=== PATIENT | female | born 1960 | race Two or more races ===

== ENCOUNTER 2017-05-07 08:56 | Emergency (ER) | payer OTHER ==
--- OUTSIDE RECORDS SUMMARY | 2017-05-07 09:10 | XMS REPORT ---
:1960 External Reference #:[id number] Author Organization [facility] Address [address] [address] Phone [phone] Care Team Providers Name Role Phone Nisha Dominguez MD Primary Care Physician Unavailable Payers Type Date Identification Numbers Payment Provider Subscriber Commercial Policy Number: [id number] Total Care/Pack [facility] [employer] Name: [id number] [address] [address] PayID: [id number] [place] [address] Medigap Part B Expires: 2014 Policy Number: [id number] Medicaid [employer] Name: 1 1 [address] PayID: [id number] [place] [address] Problems Date Description Provider Status Onset: 01/26/2015 Immunologic Shiraz Diallo M.D. Active Onset: 01/26/2015 Chronic pain Shiraz Diallo M.D. Active Family History Date Family Member(s) Problem(s) Comments General Diabetes Mother Diabetes Social History Type Date Description Comments Lives With Son Occupation Unemployed Cigarette Use Patient is a current cigarette smoker, smokes every day Cigarette Use currently smokes 1/2 Pack Daily ETOH Use Denies alcohol use Smoking Patient is a current smoker, smokes 1-3 cigs per daily every day Recreational Drug Use Denies Drug Use Daily Caffeine Consumes on average 1 cup of regular coffee per day Exercise Type/Frequency Does not exercise Allergies, Adverse Reactions, Alerts Date Description Reaction Status Severity Comments 10/19/2014 NKDA active Medications Medication Date Status Form Strength Qnty SIG Indications Ordering Provider Vitamin D 03/05 Active Capsules [id number] 14cap Take 1 (Ergocalciferol s Capsule By Tyra, ) Mouth Once M.D. Weekly Enbrel 12/12 Active Solution 50mg/ml 4unit inject M06.4 Zsofia Sureclick Auto-Inject s subcutaneous El, ly 50mg [employer] every week pen Aspercreme Max 10/07 Active Liquid 16% 1unit apply daily M06.09 Giovany Roll-On s as needed Delta Mary M.D. Strength Plaquenil 05/01 Active Tablets 200mg 180ta Take 2 by F17.210 bs mouth daily nelda Mary M.D. Cardizem 03/12 Active Tablets 30mg 180ta 1 by mouth R00.2 Qutayb bs twice a day Boris Rogers M.D. Methotrexate 01/30 Active Tablets 2.5mg 64tab take 8 M06.4 s capsules/tab Tyra, lets once M.D. weekly by mouth on wednesdays (in [place]) Folic Acid 01/30 Active Tablets 1mg 90tab take one M06.4 s capsule/tabl Tyra, et daily by M.D. mouth qd Ibuprofen Active Tablets 600mg 1 by mouth Unknown three times a day as needed Advair HFA Active Aerosol 115-21mcg 2 puff twice Unknown /0000 /Act a day Proair HFA Active Aerosol 108(90Bas 2 puffs by Unknown /0000 e) mouth every mcg/Act 6 hours as needed Fluticasone Active Suspension 50mcg/Act 2 sprays Unknown each nostril daily as needed Voltaren Active Gel 1% apply to Unknown /0000 affected area twice a day, as needed Diclofenac 00 Active Gel 3% topical prn Sailaja-H Sodium /0000 Dacia woodward PA Estradiol 00 Active 1mg 1 po daily ( Unknown 0000 Pt has one dose left - inst to f/u with MD to prescribe Enbrel 06/05 Hx Soln 50mg/ml 11.76 50mg sq M06.4 Prefill ml every week, Tyra, - Syringe 3 month M.D. 12/12 Prednisone 05/01 Hx Tablets 5mg 120ta please take M06.4 bs 2 tabs daily Tyra, - M.D. 04/29 [id number] 02/22 Hx Chewtabs 1mg 90uni take one ts capsule/tabl Tyra, - et daily M.D. 04/28 sublingually (in Sudanese) Cyanocobalamin 02/21 Hx Solution 1000mcg/M 75ml sq once L monthly; Tyra, - please M.D. 02/22 appropriate needle and syringes for injection Prednisone 02/21 Hx Tablets 20mg 90tab 1 po qd M06.4 s Tyra, - M.D. 05/01 Ergocalciferol 02/07 Hx Capsules [id number] 14cap take 1 s capsule by Tyra, - mouth once M.D. 05/01 S01-Lmyiys 02/07 Hx Chewtabs 1mg 90uni take one ts capsule/tabl Tyra, - et daily M.D. 02/21 sublingually Prednisone 00 Hx Tablets 20mg 1 by mouth Unknown /0000 every day - 02/21 Nitrofurantoin 00 Hx Capsules 100mg 1 by mouth Unknown Macrocrystal /0000 q6hr - 12/02 Advil 00/00 Hx as needed Unknown /0000 - 01/21 Loratadine 00/00 Hx Tablets 10mg 1 by mouth Unknown /0000 every day - 04/28 Triamcinolone 00 Hx Cream 0.1% apply thin Unknown Acetonide /0000 film twice - daily 04/14 Vitamin D High 00 Hx Capsules 1000Unit 1 by mouth Unknown Potency /0000 once a week - 04/23 Immunizations CPT Code Status Date Vaccine Reaction Lot # [id number] Given 03/29/2016 Pneumonia Vaccine no reaction noted [id number] Given 01/31/2016 Influenza Virus Vaccine, [id number] Quadrivalent, Split Virus, [place] Use [id number] Given 01/11/2015 Pneumococcal Conjugate Vaccine 13 Valent For Intramuscular Use Vital Signs Date Vital Result Comment 04/29/2017 Height 68 inches 5'8" Weight 223.25 lb with boots Heart Rate 60 /min BP Systolic Sitting 142 mmHg LA, l cuff BP Diastolic Sitting 78 mmHg LA, l cuff BMI (Body Mass Index) 33.9 kg/m2 Ejection Fraction 50%-55% echo 01/29/16 12/10/2016 Height 68 inches 5'8" Weight 227.00 lb Respiratory Rate 14 /min BMI (Body Mass Index) 34.5 kg/m2 10/07/2016 Height 68 inches 5'8" Weight 223.38 lb Heart Rate 64 /min BP Systolic Sitting 110 mmHg BP Diastolic Sitting 76 mmHg Respiratory Rate 14 /min Pain Level 5 BMI (Body Mass Index) 34.0 kg/m2 06/05/2016 Height 68 inches 5'8" Heart Rate 64 /min BP Systolic Sitting 122 mmHg BP Diastolic Sitting 84 mmHg Respiratory Rate 14 /min Body Temperature 97.5 F Pain Level 5 05/01/2016 Height 68 inches 5'8" Heart Rate 70 /min BP Systolic Sitting 118 mmHg BP Diastolic Sitting 70 mmHg Respiratory Rate 14 /min Body Temperature 96.7 F Pain Level 7 04/24/2016 Weight 223.00 lb w/ boots Heart Rate 70 /min BP Systolic Sitting 128 mmHg Ra lrg cuff BP Diastolic Sitting 78 mmHg Ra lrg cuff Ejection Fraction 50% - 55% echo 01/29/16 03/29/2016 Height 68 inches 5'8" Weight 222.00 lb Heart Rate 64 /min BP Systolic Sitting 128 mmHg BP Diastolic Sitting 80 mmHg Body Temperature 98.1 F Pain Level 7 BMI (Body Mass Index) 33.8 kg/m2 03/12/2016 Height 68 inches 5'8" Weight 220.50 lb with shoes Heart Rate 78 /min BP Systolic Sitting 126 mmHg LA lrg cuff BP Diastolic Sitting 82 mmHg LA lrg cuff BMI (Body Mass Index) 33.5 kg/m2 Ejection Fraction 50% - 55% echo 01/29/16 02/22/2016 Height 68 inches 5'8" BP Systolic Sitting 126 mmHg BP Diastolic Sitting 90 mmHg Respiratory Rate 16 /min Body Temperature 96.6 F Pain Level 10 01/31/2016 Height 68 inches 5'8" Weight 221.00 lb Heart Rate 60 /min irreg BP Systolic Sitting 130 mmHg BP Diastolic Sitting 80 mmHg Body Temperature 97.5 F Pain Level 9 BMI (Body Mass Index) 33.6 kg/m2 01/23/2016 Height 68 inches 5'8" Weight 220.25 lb with shoes/cane Heart Rate 78 /min BP Systolic Sitting 142 mmHg LA, large BP Diastolic Sitting 84 mmHg LA, large BMI (Body Mass Index) 33.5 kg/m2 Ejection Fraction 50-55% echo 11/10/14 01/03/2016 Height 68 inches 5'8" Weight 214.00 lb Heart Rate 61 /min BP Systolic 149 mmHg BP Diastolic 82 mmHg BMI (Body Mass Index) 32.5 kg/m2 01/26/2015 Height 64 inches 5'4" Weight 188.00 lb Heart Rate 64 /min BP Systolic Sitting 128 mmHg BP Diastolic Sitting 74 mmHg Pain Level 8 BMI (Body Mass Index) 32.3 kg/m2 10/26/2014 Height 64.5 inches 5'4.50" Weight 174.00 lb no shoes Heart Rate 74 /min BP Systolic 102 mmHg Ra, reg cuff BP Diastolic 66 mmHg Ra, reg cuff BP Systolic Sitting 106 mmHg LA, reg cuff BP Diastolic Sitting 70 mmHg LA, reg cuff BP Systolic Standing 100 mmHg LA BP Diastolic Standing 72 mmHg LA Respiratory Rate 14 /min BMI (Body Mass Index) 29.4 kg/m2 10/18/2014 Height 68 inches 5'8" Results Test Date Test Result H/L Range Note Comp Metabolic Panel 01/13/2017 Sodium 139 mmol/L 133-145 Potassium 4.4 mmol/L 3.5-5.0 Chloride 104 mmol/L 101-111 Co2 Carbon Dioxide 28 mmol/L 22-32 Anion Gap 7 mmol/L 2-11 Glucose 71 mg/dL 70-100 Blood Urea Nitrogen 13 mg/dL 6-24 Creatinine 0.74 mg/dL 0.51-0.95 BUN/Creatinine Ratio 17.6 8-20 Calcium 9.4 mg/dL 8.6-10.3 Total Protein 7.0 g/dL 6.4-8.9 Albumin 3.8 g/dL 3.2-5.2 Globulin 3.2 g/dL 2-4 Albumin/Globulin Ratio 1.2 1-3 Total Bilirubin 0.40 mg/dL 0.2-1.0 Alkaline Phosphatase 70 U/L 34-104 Alt 16 U/L 7-52 Ast 24 U/L 13-39 Egfr Non- 80.3 >60 Egfr 103.3 >60 1 Laboratory test finding 12/10/2016 C Reactive Protein 9.88 mg/L High < 5.00 2 CBC Auto Diff 12/10/2016 White Blood Count 8.2 10^3/uL 3.5-10.8 Red Blood Count 4.05 10^6/uL 4.0-5.4 Hemoglobin 13.3 g/dL 12.0-16.0 Hematocrit 39 % 35-47 Mean Corpuscular Volume 96 fL 80-97 Mean Corpuscular Hemoglobin 33 pg High 27-31 Mean Corpuscular HGB Conc 34 g/dL 31-36 Red Cell Distribution Width 16 % High 10.5-15 Platelet Count 282 10^3/uL 150-450 Mean Platelet Volume 9 um3 7.4-10.4 Abs Neutrophils 4.4 10^3/uL 1.5-7.7 Abs Lymphocytes 3.3 10^3/uL 1.0-4.8 Abs Monocytes 0.4 10^3/uL 0-0.8 Abs Eosinophils 0.1 10^3/uL 0-0.6 Abs Basophils 0 10^3/uL 0-0.2 Abs Nucleated RBC 0.01 10^3/uL Granulocyte % 53.5 % 38-83 Lymphocyte % 40.0 % 25-47 Monocyte % 4.8 % 1-9 Eosinophil % 1.5 % 0-6 Basophil % 0.2 % 0-2 Nucleated Red Blood Cells % 0.1 Laboratory test finding 12/10/2016 Erythrocyte Sed Rate 22 mm/Hr 0-30 TSH (Thyroid Stim Horm) 3.02 mcIU/mL 0.34-5.60 3 Comp Metabolic Panel 12/10/2016 Sodium 141 mmol/L 133-145 Potassium 4.1 mmol/L 3.5-5.0 Chloride 105 mmol/L 101-111 Co2 Carbon Dioxide 31 mmol/L 22-32 Anion Gap 5 mmol/L 2-11 Glucose 97 mg/dL 70-100 Blood Urea Nitrogen 11 mg/dL 6-24 Creatinine 0.72 mg/dL 0.51-0.95 BUN/Creatinine Ratio 15.3 8-20 Calcium 9.3 mg/dL 8.6-10.3 Total Protein 6.5 g/dL 6.4-8.9 Albumin 3.6 g/dL 3.2-5.2 Globulin 2.9 g/dL 2-4 Albumin/Globulin Ratio 1.2 1-3 Total Bilirubin 0.50 mg/dL 0.2-1.0 Alkaline Phosphatase 74 U/L 34-104 Alt 42 U/L 7-52 Ast 33 U/L 13-39 Egfr Non- 83.2 >60 Egfr 107.0 >60 4 Lipid Profile (Trig/Chol/HDL) 12/10/2016 Triglycerides 113 mg/dL 5 Cholesterol 176 mg/dL 6 HDL Cholesterol 49.9 mg/dL 7 LDL Cholesterol 104 mg/dL 8 Laboratory test finding 10/11/2016 Erythrocyte Sed Rate 50 mm/Hr High 0- 30 CBC Auto Diff 10/11/2016 White Blood Count 5.7 10^3/uL 3.5-10.8 Red Blood Count 4.06 10^6/uL 4.0-5.4 Hemoglobin 13.0 g/dL 12.0-16.0 Hematocrit 39 % 35-47 Mean Corpuscular Volume 97 fL 80-97 Mean Corpuscular Hemoglobin 32 pg High 27-31 Mean Corpuscular HGB Conc 33 g/dL 31-36 Red Cell Distribution Width 14 % 10.5-15 Platelet Count 306 10^3/uL 150-450 Mean Platelet Volume 9 um3 7.4-10.4 Abs Neutrophils 2.5 10^3/uL 1.5-7.7 Abs Lymphocytes 2.8 10^3/uL 1.0-4.8 Abs Monocytes 0.3 10^3/uL 0-0.8 Abs Eosinophils 0.1 10^3/uL 0-0.6 Abs Basophils 0 10^3/uL 0-0.2 Abs Nucleated RBC 0 10^3/uL Granulocyte % 43.5 % 38-83 Lymphocyte % 48.8 % High 25-47 Monocyte % 4.8 % 1-9 Eosinophil % 2.5 % 0-6 Basophil % 0.4 % 0-2 Nucleated Red Blood Cells % 0 Comp Metabolic Panel 10/11/2016 Sodium 137 mmol/L 133-145 Potassium 4.3 mmol/L 3.5-5.0 Chloride 107 mmol/L 101-111 Co2 Carbon Dioxide 27 mmol/L 22-32 Anion Gap 3 mmol/L 2-11 Glucose 95 mg/dL 70-100 Blood Urea Nitrogen 15 mg/dL 6-24 Creatinine 0.80 mg/dL 0.51-0.95 BUN/Creatinine Ratio 18.8 8-20 Calcium 9.3 mg/dL 8.6-10.3 Total Protein 6.6 g/dL 6.4-8.9 Albumin 3.6 g/dL 3.2-5.2 Globulin 3.0 g/dL 2-4 Albumin/Globulin Ratio 1.2 1-3 Total Bilirubin 0.30 mg/dL 0.2-1.0 Alkaline Phosphatase 75 U/L 34-104 Alt 30 U/L 7-52 Ast 42 U/L High 13-39 Egfr Non- 73.7 >60 Egfr 94.7 >60 9 Laboratory test finding 10/11/2016 C Reactive Protein 11.11 mg/L High &lt ; 5.00 10 Laboratory test finding 06/05/2016 Erythrocyte Sed Rate 22 mm/Hr 0-30 11 C Reactive Protein 7.40 mg/L High < 5.00 12 Quantiferon Gold TB 06/05/2016 M tuberculosis by Quantiferon Negative Negative 13 TB Ag minus Nil Result -0.01 IU/mL TB Mitogen minus Nil Result > 10.00 IU/mL TB Nil Result 0.07 IU/mL 14 CBC Auto Diff 06/05/2016 White Blood Count 11.1 10^3/uL High 3.5-10.8 Red Blood Count 4.68 10^6/uL 4.0-5.4 Hemoglobin 14.5 g/dL 12.0-16.0 Hematocrit 44 % 35-47 Mean Corpuscular Volume 94 fL 80-97 Mean Corpuscular Hemoglobin 31 pg 27-31 Mean Corpuscular HGB Conc 33 g/dL 31-36 Red Cell Distribution Width 15 % 10.5-15 Platelet Count 274 10^3/uL 150-450 Mean Platelet Volume 9 um3 7.4-10.4 Abs Neutrophils 7.0 10^3/uL 1.5-7.7 Abs Lymphocytes 3.4 10^3/uL 1.0-4.8 Abs Monocytes 0.6 10^3/uL 0-0.8 Abs Eosinophils 0.1 10^3/uL 0-0.6 Abs Basophils 0 10^3/uL 0-0.2 Abs Nucleated RBC 0 10^3/uL Granulocyte % 62.9 % 38-83 Lymphocyte % 30.4 % 25-47 Monocyte % 5.8 % 1-9 Eosinophil % 0.6 % 0-6 Basophil % 0.3 % 0-2 Nucleated Red Blood Cells % 0 Comp Metabolic Panel 06/05/2016 Sodium 139 mmol/L 133-145 Potassium 3.7 mmol/L 3.5-5.0 Chloride 103 mmol/L 101-111 Co2 Carbon Dioxide 30 mmol/L 22-32 Anion Gap 6 mmol/L 2-11 Glucose 107 mg/dL High 70-100 Blood Urea Nitrogen 15 mg/dL 6-24 Creatinine 0.82 mg/dL 0.51-0.95 BUN/Creatinine Ratio 18.3 8-20 Calcium 9.2 mg/dL 8.6-10.3 Total Protein 6.9 g/dL 6.4-8.9 Albumin 3.7 g/dL 3.2-5.2 Globulin 3.2 g/dL 2-4 Albumin/Globulin Ratio 1.2 1-3 Total Bilirubin 0.30 mg/dL 0.2-1.0 Alkaline Phosphatase 63 U/L 34-104 Alt 16 U/L 7-52 Ast 13 U/L 13-39 Egfr Non- 71.6 >60 Egfr 92.1 >60 15 Laboratory test finding 04/29/2016 C Reactive Protein 8.58 mg/L High < 5.00 16 Erythrocyte Sed Rate 19 mm/Hr 0-30 CBC Auto Diff 04/29/2016 White Blood Count 9.7 10^3/uL 3.5-10.8 Red Blood Count 4.51 10^6/uL 4.0-5.4 Hemoglobin 13.8 g/dL 12.0-16.0 Hematocrit 42 % 35-47 Mean Corpuscular Volume 92 fL 80-97 Mean Corpuscular Hemoglobin 31 pg 27-31 Mean Corpuscular HGB Conc 33 g/dL 31-36 Red Cell Distribution Width 14 % 10.5-15 Platelet Count 237 10^3/uL 150-450 Mean Platelet Volume 10 um3 7.4-10.4 Abs Neutrophils 5.3 10^3/uL 1.5-7.7 Abs Lymphocytes 3.7 10^3/uL 1.0-4.8 Abs Monocytes 0.6 10^3/uL 0-0.8 Abs Eosinophils 0.1 10^3/uL 0-0.6 Abs Basophils 0 10^3/uL 0-0.2 Abs Nucleated RBC 0.01 10^3/uL Granulocyte % 54.6 % 38-83 Lymphocyte % 37.9 % 25-47 Monocyte % 6.6 % 1-9 Eosinophil % 0.6 % 0-6 Basophil % 0.3 % 0-2 Nucleated Red Blood Cells % 0.1 Comp Metabolic Panel 04/29/2016 Sodium 142 mmol/L 133-145 Potassium 3.8 mmol/L 3.5-5.0 Chloride 106 mmol/L 101-111 Co2 Carbon Dioxide 31 mmol/L 22-32 Anion Gap 5 mmol/L 2-11 Glucose 73 mg/dL 70-100 Blood Urea Nitrogen 17 mg/dL 6-24 Creatinine 0.83 mg/dL 0.51-0.95 BUN/Creatinine Ratio 20.5 High 8-20 Calcium 9.0 mg/dL 8.6-10.3 Total Protein 6.0 g/dL Low 6.4-8.9 Albumin 3.3 g/dL 3.2-5.2 Globulin 2.7 g/dL 2-4 Albumin/Globulin Ratio 1.2 1-3 Total Bilirubin 0.30 mg/dL 0.2-1.0 Alkaline Phosphatase 51 U/L 34-104 Alt 14 U/L 7-52 Ast 13 U/L 13-39 Egfr Non- 70.6 >60 Egfr 90.8 >60 17 Laboratory test finding 02/26/2016 Erythrocyte Sed Rate 33 mm/Hr High 0- 30 18 C Reactive Protein 11.45 mg/L High < 5.00 19 CBC Auto Diff 02/26/2016 White Blood Count 8.7 10^3/uL 3.5-10.8 Red Blood Count 4.29 10^6/uL 4.0-5.4 Hemoglobin 13.2 g/dL 12.0-16.0 Hematocrit 39 % 35-47 Mean Corpuscular Volume 92 fL 80-97 Mean Corpuscular Hemoglobin 31 pg 27-31 Mean Corpuscular HGB Conc 34 g/dL 31-36 Red Cell Distribution Width 13 % 10.5-15 Platelet Count 317 10^3/uL 150-450 Mean Platelet Volume 9 um3 7.4-10.4 Abs Neutrophils 5.4 10^3/uL 1.5-7.7 Abs Lymphocytes 2.9 10^3/uL 1.0-4.8 Abs Monocytes 0.3 10^3/uL 0-0.8 Abs Eosinophils 0 10^3/uL 0-0.6 Abs Basophils 0 10^3/uL 0-0.2 Abs Nucleated RBC 0.01 10^3/uL Granulocyte % 62.4 % 38-83 Lymphocyte % 32.9 % 25-47 Monocyte % 3.8 % 1-9 Eosinophil % 0.5 % 0-6 Basophil % 0.4 % 0-2 Nucleated Red Blood Cells % 0.1 Comp Metabolic Panel 02/26/2016 Sodium 142 mmol/L 133-145 Potassium 3.6 mmol/L 3.5-5.0 Chloride 106 mmol/L 101-111 Co2 Carbon Dioxide 31 mmol/L 22-32 Anion Gap 5 mmol/L 2-11 Glucose 79 mg/dL 70-100 Blood Urea Nitrogen 14 mg/dL 6-24 Creatinine 0.83 mg/dL 0.51-0.95 BUN/Creatinine Ratio 16.9 8-20 Calcium 9.0 mg/dL 8.6-10.3 Total Protein 6.4 g/dL 6.4-8.9 Albumin 3.4 g/dL 3.2-5.2 Globulin 3.0 g/dL 2-4 Albumin/Globulin Ratio 1.1 1-3 Total Bilirubin 0.30 mg/dL 0.2-1.0 Alkaline Phosphatase 67 U/L 34-104 Alt 14 U/L 7-52 Ast 19 U/L 13-39 Egfr Non- 70.6 >60 Egfr 90.8 >60 20 Laboratory test finding 02/26/2016 Creatine Kinase(CK) 61 U/L 10-223 21 Rosanna Igg AB Reflex 02/26/2016 SS-A/Ro Antibody <0.2 U 22 SS-B/La Antibody <0.2 U 23 Sm (Larry) IgG Antibody <0.2 U 24 U1-nRNP Antibody <0.2 U 25 Scl-70 (Scleroderma) Antibody <0.2 U 26 Kavitha-1 Antibody <0.2 U 27 Laboratory test finding 02/26/2016 Anti Double Stranded Dna AB <12.3 IU/ mL 28 Complement C3 113 mg/dL 75 - 175 29 Complement C4 20 mg/dL 14 - 40 30 Cardiolipin Igg/Igm 02/26/2016 Phospholipid Ab IgM, S < 4.0 MPL 31 Phospholipid Ab IgG < 4.0 GPL 32 Laboratory test finding 02/05/2016 Anti Nuclear Antibody >12.0 U 33 Rheumatoid Factor <15 IU/mL <15 34 Uric Acid 4.6 mg/dL 2.3-6.6 Cyclic Citrullinated Pep Igg <15.6 U 35 Erythrocyte Sed Rate 22 mm/Hr 0-30 C Reactive Protein 8.30 mg/L High < 5.00 36 CBC Auto Diff 02/05/2016 White Blood Count 9.0 10^3/uL 3.5-10.8 Red Blood Count 4.60 10^6/uL 4.0-5.4 Hemoglobin 14.1 g/dL 12.0-16.0 Hematocrit 42 % 35-47 Mean Corpuscular Volume 91 fL 80-97 Mean Corpuscular Hemoglobin 31 pg 27-31 Mean Corpuscular HGB Conc 34 g/dL 31-36 Red Cell Distribution Width 14 % 10.5-15 Platelet Count 290 10^3/uL 150-450 Mean Platelet Volume 10 um3 7.4-10.4 Abs Neutrophils 4.5 10^3/uL 1.5-7.7 Abs Lymphocytes 3.8 10^3/uL 1.0-4.8 Abs Monocytes 0.5 10^3/uL 0-0.8 Abs Eosinophils 0.1 10^3/uL 0-0.6 Abs Basophils 0.1 10^3/uL 0-0.2 Abs Nucleated RBC 0 10^3/uL Granulocyte % 50.1 % 38-83 Lymphocyte % 42.4 % 25-47 Monocyte % 6.0 % 1-9 Eosinophil % 0.9 % 0-6 Basophil % 0.6 % 0-2 Nucleated Red Blood Cells % 0 Comp Metabolic Panel 02/05/2016 Sodium 140 mmol/L 133-145 Potassium 3.3 mmol/L Low 3.5-5.0 Chloride 103 mmol/L 101-111 Co2 Carbon Dioxide 30 mmol/L 22-32 Anion Gap 7 mmol/L 2-11 Glucose 74 mg/dL 70-100 Blood Urea Nitrogen 16 mg/dL 6-24 Creatinine 0.76 mg/dL 0.51-0.95 BUN/Creatinine Ratio 21.1 High 8-20 Calcium 9.0 mg/dL 8.6-10.3 Total Protein 6.7 g/dL 6.4-8.9 Albumin 3.5 g/dL 3.2-5.2 Globulin 3.2 g/dL 2-4 Albumin/Globulin Ratio 1.1 1-3 Total Bilirubin 0.50 mg/dL 0.2-1.0 Alkaline Phosphatase 61 U/L 34-104 Alt 15 U/L 7-52 Ast 14 U/L 13-39 Egfr Non- 78.2 >60 Egfr 100.5 >60 37 Laboratory test finding 02/05/2016 Angiotensin Converting Enzyme 27 U/L 8 - 53 38 Lyme Disease Serology Negative Negative 39 Vitamin B12 And Folate Serum 02/05/2016 Vitamin B12 200 pg/mL 180-914 40 Folic Acid (Folate) 12.42 ng/mL >3.99 Vitamin D 1,25 And Vitamin 02/05/2016 Vitamin D Total 25(Oh) 16.6 ng/mL Low 30-50 D,2 Vitamin D, 1,25 Dihydroxy 43 pg/mL 18-78 41 Hepatitis Acute Panel 02/05/2016 Hepatitis C Antibody Nonreactive Nonreactive Hepatitis A AB Igm Nonreactive Nonreactive Hepatitis B Core AB Igm Nonreactive Nonreactive Hepatitis B Surface Ag Nonreactive Nonreactive Laboratory test 01/26/2015 Imani (Antinuclear Reflexed to FA Negative finding Antibodies) Anti Dna (Double Stranded Dna) Negative Negative Rosanna Screen Negative Negative 42 Urinalysis Profile 01/26/2015 Urine Color Yellow Urine Appearance Cloudy Urine Specific [place] 1.013 1.010-1.030 Urine pH 5.0 5-9 Urine Urobilinogen Negative Negative Urine Ketones Negative Negative Urine Protein Negative Negative Urine Leukocytes 1+ Negative Urine Blood Negative Negative Urine Nitrite Negative Negative Urine Bilirubin Negative Negative Urine Glucose Negative Negative Urine White Blood Cell Trace(0-5/hpf) Absent Urine Red Blood Cell 1+(3-5/hpf) Absent Urine Bacteria 1+ Absent Urine Squamous Epithelial Cell Present Absent Urine Yeast Present Absent Laboratory test 01/26/2015 Urine Culture And SEE RESULT BELOW 43 finding Sensitivities Imani Hep-2 01/26/2015 Imani Pattern Homogeneous Negative Imani Titer 1:2560 <1:80 Imani Reviewed By MD Dane Meier <SEE NOTE> 44 1 Because ethnic data is not always readily available, this report includes an eGFR for both -Americans and non- Americans. The National Kidney Disease Education Program (NKDEP) does not endorse the use of the MDRD equation for patients that are not between the ages of 18 and 70, are , have extremes of body size, muscle mass, or nutritional status, or are non- or non-. According to the National Kidney Foundation, irrespective of diagnosis, the stage of the disease is based on the level of kidney function: Stage Description GFR(mL/min/1.73 m(2)) 1 Kidney damage with normal or decreased GFR 90 2 Kidney damage with mild decrease in GFR 60-89 3 Moderate decrease in GFR 30-59 4 Severe decrease in GFR 15-29 5 Kidney failure <15 (or dialysis) 2 Acute inflammation: >10.00 3 FASTING 4 Because ethnic data is not always readily available, this report includes an eGFR for both -Americans and non- Americans. The National Kidney Disease Education Program (NKDEP) does not endorse the use of the MDRD equation for patients that are not between the ages of 18 and 70, are , have extremes of body size, muscle mass, or nutritional status, or are non- or non-. According to the National Kidney Foundation, irrespective of diagnosis, the stage of the disease is based on the level of kidney function: Stage Description GFR(mL/min/1.73 m(2)) 1 Kidney damage with normal or decreased GFR 90 2 Kidney damage with mild decrease in GFR 60-89 3 Moderate decrease in GFR 30-59 4 Severe decrease in GFR 15-29 5 Kidney failure <15 (or dialysis) 5 Desirable <150 Borderline high 150-199 High 200-499 Very High >500 6 Desirable <200 Borderline high 200-239 High >239 7 Low <40 Desirable: 40-60 High: >60 8 Desirable: <100 mg/dL Near Optimal: 100-129 mg/dL Borderline High: 130-159 mg/dL High: 160-189 mg/dL Very High: >189 mg/dL 9 Because ethnic data is not always readily available, this report includes an eGFR for both -Americans and non- Americans. The National Kidney Disease Education Program (NKDEP) does not endorse the use of the MDRD equation for patients that are not between the ages of 18 and 70, are , have extremes of body size, muscle mass, or nutritional status, or are non- or non-. According to the National Kidney Foundation, irrespective of diagnosis, the stage of the disease is based on the level of kidney function: Stage Description GFR(mL/min/1.73 m(2)) 1 Kidney damage with normal or decreased GFR 90 2 Kidney damage with mild decrease in GFR 60-89 3 Moderate decrease in GFR 30-59 4 Severe decrease in GFR 15-29 5 Kidney failure <15 (or dialysis) 10 Acute inflammation: >10.00 11 Please check today 12 Acute inflammation: >10.00 13 No interferon-gamma response to M. tuberculosis antigens was detected. Infection with M. tuberculosis is unlikely. A negative result alone does not exclude infection with M. tuberculosis. For detailed information regarding test interpretation see: [email or web address] 14 Test Performed by: [place] [address] Tool Planner: Yash Arenas II, M.D., Ph.D. 15 Because ethnic data is not always readily available, this report includes an eGFR for both -Americans and non- Americans. The National Kidney Disease Education Program (NKDEP) does not endorse the use of the MDRD equation for patients that are not between the ages of 18 and 70, are , have extremes of body size, muscle mass, or nutritional status, or are non- or non-. According to the National Kidney Foundation, irrespective of diagnosis, the stage of the disease is based on the level of kidney function: Stage Description GFR(mL/min/1.73 m(2)) 1 Kidney damage with normal or decreased GFR 90 2 Kidney damage with mild decrease in GFR 60-89 3 Moderate decrease in GFR 30-59 4 Severe decrease in GFR 15-29 5 Kidney failure <15 (or dialysis) 16 Acute inflammation: >10.00 17 Because ethnic data is not always readily available, this report includes an eGFR for both -Americans and non- Americans. The National Kidney Disease Education Program (NKDEP) does not endorse the use of the MDRD equation for patients that are not between the ages of 18 and 70, are , have extremes of body size, muscle mass, or nutritional status, or are non- or non-. According to the National Kidney Foundation, irrespective of diagnosis, the stage of the disease is based on the level of kidney function: Stage Description GFR(mL/min/1.73 m(2)) 1 Kidney damage with normal or decreased GFR 90 2 Kidney damage with mild decrease in GFR 60-89 3 Moderate decrease in GFR 30-59 4 Severe decrease in GFR 15-29 5 Kidney failure <15 (or dialysis) 18 Please check today 19 Acute inflammation: >10.00 20 Because ethnic data is not always readily available, this report includes an eGFR for both -Americans and non- Americans. The National Kidney Disease Education Program (NKDEP) does not endorse the use of the MDRD equation for patients that are not between the ages of 18 and 70, are , have extremes of body size, muscle mass, or nutritional status, or are non- or non-. According to the National Kidney Foundation, irrespective of diagnosis, the stage of the disease is based on the level of kidney function: Stage Description GFR(mL/min/1.73 m(2)) 1 Kidney damage with normal or decreased GFR 90 2 Kidney damage with mild decrease in GFR 60-89 3 Moderate decrease in GFR 30-59 4 Severe decrease in GFR 15-29 5 Kidney failure <15 (or dialysis) 21 Please check today 22 REFERENCE VALUE <1.0 (Negative) 23 REFERENCE VALUE <1.0 (Negative) 24 REFERENCE VALUE <1.0 (Negative) 25 REFERENCE VALUE <1.0 (Negative) 26 REFERENCE VALUE <1.0 (Negative) 27 REFERENCE VALUE <1.0 (Negative) Test Performed by: [place] [address] Tool Planner: Yash Arenas II, M.D., Ph.D. 28 REFERENCE VALUE <30.0 (Negative) Test Performed by: [place] [address] Tool Planner: Yash Arenas II, M.D., Ph.D. 29 Test Performed by: [place] [address] Tool Planner: Yash Arenas II, M.D., Ph.D. 30 Test Performed by: [place] [address] Tool Planner: Yash Arenas II, M.D., Ph.D. 31 REFERENCE VALUE <10.0 (Negative) 32 REFERENCE VALUE <10.0 (Negative) Test Performed by: [place] [address] Tool Planner: Yash Arenas II, M.D., Ph.D. 33 Interpretation: Strong Positive (>=6.0) REFERENCE VALUE <=1.0 (Negative) Test Performed by: [place] [address] Tool Planner: Yash Arenas II, M.D., Ph.D. 34 Test Performed by: [place] [address] Tool Planner: Yash Arenas II, M.D., Ph.D. 35 REFERENCE VALUE <20.0 (Negative) Test Performed by: [place] [address] Tool Planner: Yash Arenas II, M.D., Ph.D. 36 Acute inflammation: >10.00 37 Because ethnic data is not always readily available, this report includes an eGFR for both -Americans and non- Americans. The National Kidney Disease Education Program (NKDEP) does not endorse the use of the MDRD equation for patients that are not between the ages of 18 and 70, are , have extremes of body size, muscle mass, or nutritional status, or are non- or non-. According to the National Kidney Foundation, irrespective of diagnosis, the stage of the disease is based on the level of kidney function: Stage Description GFR(mL/min/1.73 m(2)) 1 Kidney damage with normal or decreased GFR 90 2 Kidney damage with mild decrease in GFR 60-89 3 Moderate decrease in GFR 30-59 4 Severe decrease in GFR 15-29 5 Kidney failure <15 (or dialysis) 38 Test Performed by: [facility] [place] [address] Tool Planner: Yash Arenas II, M.D., Ph.D. 39 Serologic response to B. burgdorferi infection is not detected, but cannot rule out early infection during which low or undetectable antibody levels to B. burgdorferi may be present. If clinically indicated, a new serum specimen should be submitted in 7-14 days. Test Performed by: [facility] [place] [address] Tool Planner: Yash Arenas II, M.D., Ph.D. 40 Normal Range 180 to 914 Indeterminate Range 145 to 180 Deficient Range <145 41 ADDITIONAL INFORMATION This test was developed and its performance characteristics determined by [facility] in a manner consistent with CLIA requirements. This test has not been cleared or approved by the U.S. Food and Drug Administration. Test Performed by: [facility] [place] [address] Tool Planner: Yash Arenas II, M.D., Ph.D. 42 The above ROSANNA screen is designed for the detection of antibodies to extractable nuclear antigen (ROSANNA) in human serum. It is a combination test for the detection of antibodies to ROLLER CHECKER, Sm, SS-A (Ro), and SS-B (La) nuclear antigens. 43 SEE RESULT BELOW Name: KANE AYOUB : [address]: Shiraz Diallo MD Acct: [id number] Unit: [id number] AGE: 55 Location: LAB Re01/26/15 SEX: F Status: REG REF SPEC: [id number] BRADLEY: 01/26/15-[address]: Shiraz Diallo MD REQ: [id number] RECD: 01/26/15 STATUS: COMP _ SOURCE: URINE SPDESC: ORDERED: Urine Culture Procedure Result Verified Site Urine Culture Final 01/28/15- 0845 ML Organism 1 NORMAL GEE [place] Count 1-10,000 (Few) CFU/ML * ML - MAIN LAB ([facility]) . END OF REPORT * ML=Testing performed at Main Lab DEPARTMENT OF PATHOLOGY, [address] [place] [address] Dane Duarte M.D. Director [facility] # [id number] 44 Dane Duarte Procedures Date CPT Code Description Status 04/29/2017 69345 EKG Tracing & Interpretation Completed 02/26/2016 Bone Mineral Density Test Completed 02/07/2016 07034 Treadmill Interp/Report Only Completed 02/07/2016 51371 Stress Test Supervsn W/Out I/R Completed 02/06/2016 42337 Holter Monitor Review (24 hr)dr review & interp Completed only 02/05/2016 35828 ECG Monitor/Recording W/Visual Superimposition Scanning Completed 01/29/2016 14911 ECHO Transthoracic, Real-Time 2D With Doppler And Color Completed Flow 01/23/2016 45371 EKG Tracing & Interpretation Completed 12/09/2014 10779 Treadmill Interp/Report Only Completed 12/09/2014 96445 Stress Test Supervsn W/Out I/R Completed 11/13/2014 76596 Holter Monitoring 24 HR New Completed 11/10/2014 42502 ECHO Transthoracic, Real-Time 2D With Doppler And Color Completed Flow 11/09/2014 18501 Holter Monitoring 24 HR New Completed 10/26/2014 61007 EKG Tracing & Interpretation Completed Encounters Type Date Location Provider CPT E/M Dx Office Visit 12/10/2016 [facility] Giovany Mary M.D. 27672 M06.09 11:00a Of [facility] Z79.52 Z79.899 M06.4 F17.210 Office Visit 10/07/2016 1:20p [facility] Giovany Mary 27304 M06.09 Of [place] Jhaveri Z79.52 Z79.899 F17.210 Office Visit 07/12/2016 10:30a [facility] Of Nurse Visit 15401 M06.4 [facility] Office Visit 06/05/2016 10:40a [facility] Of Giovany Mary 02339 M06.4 [place] Jhaveri Z79.899 Z79.52 F17.210 Office Visit 05/01/2016 11:40a [facility] Of Giovany Mary 09504 M06.4 Evans M.DEstela Z79.899 Z79.52 F17.210 Office Visit 04/24/2016 11:30a [facility] TASHA Wray 64017 I34.0 I49.1 I47.1 Office Visit 03/29/2016 12:00p [facility] Of Giovany TyraEmilio encarnacion 88434 Z23 Manager Operational M06.4 R76.0 Z79.899 Z79.52 Office Visit 03/12/2016 3:40p [facility] Angela[facility] Sue, [address] I34.0 M.D. I36.1 F17.210 I49.1 Office Visit 02/22/2016 10:20a [facility] Of Giovany Mary, 95706 M06.4 Evans M.DEstela R20.8 Z79.899 F17.210 R76.0 M54.5 Z79.52 Office Visit 01/31/2016 11:00a [facility] Of Giovany Mary, 09389 M06.4 Evans M.DEstela Z79.899 R06.02 R20.8 Z79.52 Z23 F17.210 Office Visit 01/23/2016 11:00a [facility] Angelesnathan MillerEstela Sue, [address] R00.0 M.DEstela R00.2 R06.02 I34.0 I36.1 R94.31 I45.10 Office Visit 01/03/2016 2:15p [facility] Alejandro Clemons M.D. 67368 M13.872 C.M.A. Office Visit 11/02/2015 10:15a [facility], Cristina Monique, [address]258 N12 Hospitalists M.Preethi N81.4 J45.909 Office Visit 11/01/2015 10:15a [facility], Cristina Monique, 27972 N12 Hospitalists M.Preethi N81.4 J45.909 Office Visit 10/31/2015 10:14a [facility], Cristina Monique, 65264 N12 Hospitalists MOpal N81.4 J45.909 Office Visit 10/30/2015 10:14a [facility] Wade, [address] N12 Assoc,pc NEUROLOGY TECHNOLOGIST Hospitalists N81.4 J45.909 Office Visit 01/26/2015 1:00p [facility] Shiraz Diallo M.D. 28792 R76.0 Of [facility] G89.29 Office Visit 10/26/2014 2:40p [facility] Of Mauricio Escalante 34199 794.31 Evans Rogers M.D. 426.4 786.50 786.05 785.0 Plan of Care Future Appointment(s):05/21/2017 10:30 am - Nurse Visit cc at [facility]05/20/2017 12:00 pm - Nurse Visit cc at [facility]05/08/2017 10 :00 am - Ica ECHO Schedule at [facility]04/30/2017 10:40 am - Giovany Mary M.D. at [facility]04/29/2017 - Mauricio Rogers M.D.F17.210 Nicotine dependence, cigarettes, zvjvzlbnglhbwK02.0 Nonrheumatic mitral (valve) insufficiencyFollow up:one yr ovI49.1 Atrial premature wjgsfypmirjyuxF76.1 Supraventricular achmokyymtwH40.2 PalpitationsNew Orders:24 hour holter idxmmcjBewaihioshzprkL04.9 Obesity, unspecified
[2017-05-07] MEDS ORDERED: Ibuprofen TAB* 600 MG PO ONE (09:16)
[2017-05-07] MEDS ORDERED: NS 0.9% 1000 ML* 2,000 ML IV ONE (09:40)
[2017-05-07] MEDS ORDERED: Metoclopramide IV* 5 MG/ML 2 ML VIAL IV SLOW PU ONE (09:40)
[2017-05-07 09:56] LABS: Hematocrit 39 % (35-47); Hemoglobin 13.1 g/dl (12.0-16.0); Mean Corpuscular HGB Conc 34 g/dl (31-36); Mean Corpuscular Hemoglobin 31 pg (27-31); Mean Corpuscular Volume 91 fL (80-97); Mean Platelet Volume 9 um3 (7.4-10.4); Platelet Count 269 10^3/ul (150-450); Red Blood Count 4.26 10^6/ul (4.0-5.4); Red Cell Distribution Width 13 % (10.5-15); White Blood Count 9.9 10^3/ul (3.5-10.8)
--- NOTE | 2017-05-07 10:37 | RAD ---
HISTORY: Fever, headache COMPARISONS: February 05, 2016 VIEWS: 4: Frontal dual-energy and lateral views of the chest. FINDINGS: CARDIOMEDIASTINAL SILHOUETTE: There is right atrial enlargement. This can be identified on previous examinations and is stable. MARISSA: The marissa are normal. PLEURA: The costophrenic angles are sharp. No pleural abnormalities are noted. LUNG PARENCHYMA: The lungs are clear. ABDOMEN: The upper abdomen is clear. There is no subphrenic gas. BONES AND SOFT TISSUES: No bone or soft tissue abnormalities are noted. OTHER: None. IMPRESSION: RIGHT ATRIAL ENLARGEMENT. NO ACTIVE CARDIOPULMONARY DISEASE.
[2017-05-07 10:51] LABS: Urine Appearance Clear; Urine Blood 1+ (Negative); Urine Color Yellow; Urine Ketones Negative (Negative); Urine Protein Negative (Negative); Urine Urobilinogen Negative (Negative)
[2017-05-07 11:03] LABS: EGFR Non-African American 75.6 (>60)
[2017-05-07 11:58] VITALS: BP 114/62
--- NOTE | 2017-05-09 13:19 | ED ---
Progress - Progress Note Progress Note: Patient's preliminary urine culture reveals 25-50,000 Escherichia coli. She was seen and diagnosed with influenza on 05/07/2017. No further treatment at this time. Note: If patient returns with urinary tract symptoms, will review final sensitivities for guidance with treatment as needed. Course/Dx - Diagnoses Provider Diagnoses: Flu-like symptoms
--- NOTE | 2017-05-18 14:16 | ED ---
Manda Leavitt Jason, scribed for Wallace Freire MD on 05/07/17 at 1002 . Influenza-Like Illness - HPI Summary HPI Summary: This patient is a 57 year old F presenting to [facility] with a chief complaint of influenza like illness since 3 days ago. The patient rates the pain 8/10 in severity. Symptoms aggravated by nothing. Symptoms alleviated by nothing. Patient reports occasional nausea, gradual onset headache, nonproductive cough, throat pain, congestion, and extensive body aches. Patient denies neck pain, chest pain, SOB, and urinary sx. - History of Current Complaint Hx Obtained From: Patient Onset/Duration: Gradual Onset Associated Signs & Symptoms: Myalgia, Cough, Sore Throat, Nasal Congestion, Headache <Wallace Freire - Last Filed: 05/07/17 10:40> <Man George - Last Filed: 05/07/17 11:41> - History of Current Complaint Chief Complaint: EDFluSymptoms Time Seen by Provider: 05/07/17 09:17 - Allergy/Home Medications Allergies/Adverse Reactions: Allergies Allergy/AdvReac Type Severity Reaction Status Date / Time No Known Allergies Allergy Verified 05/07/17 09:04 Home Medications: Home Medications Advair HFA 115/21 (NF) 2 puff INH DAILY 05/07/17 [History Confirmed 05/07/17] Aspercreme Max Roll-On Ar 1 unit TOPICAL DAILY PRN 05/07/17 [History Confirmed 05/07/17] Diltiazem HCl [Cardizem 30 MG TAB] 30 mg PO DAILY 05/07/17 [History Confirmed ] Ergocalciferol CAP* [Drisdol CAP*] 1 cap PO WEEKLY 05/07/17 [History Confirmed 05/07/17] Estradiol TAB(NF) 1 tab PO DAILY 05/07/17 [History Confirmed 05/07/17] Etanercept [Enbrel Sureclick] 50 mg SC WEEKLY 05/07/17 [History Confirmed ] Folic Acid [Kp Folic Acid] 1 tab PO DAILY 05/07/17 [History Confirmed 05/07/17] Hydroxychloroquine TAB* [Plaquenil TAB*] 400 mg PO DAILY 05/07/17 [History Confirmed 05/07/17] Ibuprofen TAB* [Advil TAB*] 600 mg PO TID PRN 05/07/17 [History Confirmed ] Methotrexate TAB* 20 mg PO WEEKLY 05/07/17 [History Confirmed 05/07/17] PMH/Surg Hx/FS Hx/Imm Hx Endocrine/Hematology History: Denies: Hx Diabetes Cardiovascular History: Reports: Hx Angina - MID CHEST ACROSS CHEST AND OCC INTO MID BACK, Hx Hypertension Denies: Hx Congestive Heart Failure, Hx Coronary Artery Disease, Hx Hypercholesterolemia, Hx Myocardial Infarction, Hx Pacemaker/ICD, Hx Valvular Heart Disease Respiratory History: Reports: Hx Asthma History: Denies: Hx Renal Disease Comment Only: Other Problems/Disorders - HAS PESSARY Musculoskeletal History: Denies: Hx Osteoporosis Sensory History: Denies: Hx Hearing Aid Comment Only: Hx Contacts or Glasses - WEARS GLASSES Opthamlomology History: Comment Only: Hx Contacts or Glasses - WEARS GLASSES Psychiatric History: Denies: Hx Panic Disorder - Cancer History Hx Chemotherapy: No Hx Radiation Therapy: No - Surgical History Surgery Procedure, Year, and Place: UTERINE MESH 2014-. HYSTERECTOMY Infectious Disease History: No Infectious Disease History: Denies: Traveled Outside the [place] in Last 30 Days - Family History Known Family History: Negative: Hypertension, Blood Disorder - Social History Alcohol Use: None Hx Substance Use: No Substance Use Type: Reports: None Smoking Status (MU): Light Every Day Tobacco Smoker Type: Cigarettes Length of Time of Smoking/Using Tobacco: PT STATES SMOKED ABOUT 15 YEARS STOPPED FOR MANY YEARS THEN RESTARTED Have You Smoked in the Last Year: Yes <Wallace Freire - Last Filed: 05/07/17 10:40> Review of Systems ENT: Negative - neck pain Positive: Sore Throat, Other - nasal congestion Negative: Chest Pain Positive: Cough - nonproductive. Negative: Shortness Of Breath Positive: Nausea Genitourinary: Negative - urinary sx Positive: Myalgia Positive: Headache - gradual onset All Other Systems Reviewed And Are Negative: Yes <Wallace Freire - Last Filed: 05/07/17 10:40> Physical Exam - Summary Physical Exam Summary: Constitutional: Well-developed, Well-nourished, Alert. (-) Distressed Skin: Warm, Dry HENT: Normocephalic; Atraumatic Eyes: Conjunctiva normal Neck: Musculoskeletal ROM normal neck, no nuchal rigidity. (-) JVD, (-) Stridor , (-) Tracheal deviation Cardio: Rhythm regular, rate normal, Heart sounds normal; Intact distal pulses; The pedal pulses are 2+ and symmetric. Radial pulses are 2+ and symmetric. (-) Murmur Pulmonary/Chest wall: Effort normal. (-) Respiratory distress, (-) Wheezes, Faint crackles in both bases. Abd: Soft, (-) Tenderness, (-) Distension, (-) Guarding, (-) Rebound Musculoskeletal: (-) Edema Lymph: (-) Cervical adenopathy Neuro: Alert, Oriented x3 Psych: Mood and affect Normal Triage Information Reviewed: Yes Vital Signs On Initial Exam: Initial Vitals Temp Pulse Resp BP Pulse Ox 100.3 F 84 18 157/100 97 05/07/17 09:01 05/07/17 09:01 05/07/17 09:01 05/07/17 09:01 05/07/17 09:01 Vital Signs Reviewed: Yes <Wallace Freire - Last Filed: 05/07/17 10:40> Vital Signs On Initial Exam: Initial Vitals Temp Pulse Resp BP Pulse Ox 37.9 C 84 18 157/100 97 05/07/17 09:01 05/07/17 09:01 05/07/17 09:01 05/07/17 09:01 05/07/17 09:01 <Man George - Last Filed: 05/07/17 11:41> Diagnostics - Vital Signs Vital Signs Temp Pulse Resp BP Pulse Ox 05/07/17 09:01 100.3 F 84 18 157/100 97 - Laboratory Lab Results: Lab Results 05/07/17 Range/Units 09:40 WBC 9.9 (3.5-10.8) 10^3/ul RBC 4.26 (4.0-5.4) 10^6/ul Hgb 13.1 (12.0-16.0) g/dl Hct 39 (35-47) % MCV 91 (80-97) fL MCH 31 (27-31) pg MCHC 34 (31-36) g/dl RDW 13 (10.5-15) % Plt Count 269 (150-450) 10^3/ul MPV 9 (7.4-10.4) um3 Result Diagrams: 05/07/17 09:40 Lab Statement: Any lab studies that have been ordered have been reviewed, and results considered in the medical decision making process. <Wallace Freire - Last Filed: 05/07/17 10:40> - Vital Signs Vital Signs Temp Pulse Resp BP Pulse Ox 05/07/17 11:00 69 100/52 97 05/07/17 10:30 70 98/57 97 05/07/17 10:25 107/44 05/07/17 10:02 73 108/57 97 05/07/17 09:59 74 97 05/07/17 09:57 73 97 05/07/17 09:01 37.9 C 84 18 157/100 97 - Laboratory Lab Results: Lab Results 05/07/17 05/07/17 05/07/17 Range/Units 09:40 09:40 09:40 WBC 9.9 (3.5-10.8) 10^3/ul RBC 4.26 (4.0-5.4) 10^6/ul Hgb 13.1 (12.0-16.0) g/dl Hct 39 (35-47) % MCV 91 (80-97) fL MCH 31 (27-31) pg MCHC 34 (31-36) g/dl RDW 13 (10.5-15) % Plt Count 269 (150-450) 10^3/ul MPV 9 (7.4-10.4) um3 Sodium 138 (133-145) mmol/L Potassium 3.6 (3.5-5.0) mmol/L Chloride 104 (101-111) mmol/L Carbon Dioxide 29 (22-32) mmol/L Anion Gap 5 (2-11) mmol/L BUN 8 (6-24) mg/dL Creatinine 0.78 (0.51-0.95) mg/dL Est GFR ( Amer) 97.2 (>60) Est GFR (Non-Af Amer) 75.6 (>60) BUN/Creatinine Ratio 10.3 (8-20) Glucose 106 H (70-100) mg/dL Lactic Acid 1.9 (0.5-2.0) mmol/L Calcium 8.9 (8.6-10.3) mg/dL Total Bilirubin 0.40 (0.2-1.0) mg/dL AST 13 (13-39) U/L ALT 10 (7-52) U/L Alkaline Phosphatase 72 (34-104) U/L Total Protein 6.6 (6.4-8.9) g/dL Albumin 3.3 (3.2-5.2) g/dL Globulin 3.3 (2-4) g/dL Albumin/Globulin Ratio 1.0 (1-3) Urine Color Urine Appearance Urine pH (5-9) Ur Specific [place] (1.010-1.030) Urine Protein (Negative) Urine Ketones (Negative) Urine Blood (Negative) Urine Nitrate (Negative) Urine Bilirubin (Negative) Urine Urobilinogen (Negative) Ur Leukocyte Esterase (Negative) Urine WBC (Auto) (Absent) Urine RBC (Auto) (Absent) Ur Squamous Epith Cells (Absent) Urine Bacteria (Absent) Urine Glucose (Negative) Influenza A (Rapid) (Negative) Influenza B (Rapid) (Negative) 05/07/17 05/07/17 Range/Units 09:47 10:08 WBC (3.5-10.8) 10^3/ul RBC (4.0-5.4) 10^6/ul Hgb (12.0-16.0) g/dl Hct (35-47) % MCV (80-97) fL MCH (27-31) pg MCHC (31-36) g/dl RDW (10.5-15) % Plt Count (150-450) 10^3/ul MPV (7.4-10.4) um3 Sodium (133-145) mmol/L Potassium (3.5-5.0) mmol/L Chloride (101-111) mmol/L Carbon Dioxide (22-32) mmol/L Anion Gap (2-11) mmol/L BUN (6-24) mg/dL Creatinine (0.51-0.95) mg/dL Est GFR ( Amer) (>60) Est GFR (Non-Af Amer) (>60) BUN/Creatinine Ratio (8-20) Glucose (70-100) mg/dL Lactic Acid (0.5-2.0) mmol/L Calcium (8.6-10.3) mg/dL Total Bilirubin (0.2-1.0) mg/dL AST (13-39) U/L ALT (7-52) U/L Alkaline Phosphatase (34-104) U/L Total Protein (6.4-8.9) g/dL Albumin (3.2-5.2) g/dL Globulin (2-4) g/dL Albumin/Globulin Ratio (1-3) Urine Color Yellow Urine Appearance Clear Urine pH 6.0 (5-9) Ur Specific [place] 1.010 (1.010-1.030) Urine Protein Negative (Negative) Urine Ketones Negative (Negative) Urine Blood 1+ H (Negative) Urine Nitrate Negative (Negative) Urine Bilirubin Negative (Negative) Urine Urobilinogen Negative (Negative) Ur Leukocyte Esterase Negative (Negative) Urine WBC (Auto) Trace(0-5/hpf) (Absent) Urine RBC (Auto) Trace(0-2/hpf) (Absent) Ur Squamous Epith Cells Present H (Absent) Urine Bacteria 1+ H (Absent) Urine Glucose Negative (Negative) Influenza A (Rapid) Negative (Negative) Influenza B (Rapid) Negative (Negative) Result Diagrams: 05/07/17 09:40 05/07/17 09:40 Lab Statement: Any lab studies that have been ordered have been reviewed, and results considered in the medical decision making process. <Man George - Last Filed: 05/07/17 11:41> Flu Symptom Course/Dx - Course Course Of Treatment: This patient is a 57 year old F presenting to [facility] with a chief complaint of influenza like illness since 3 days ago. The patient rates the pain 8/10 in severity. Symptoms aggravated by nothing. Symptoms alleviated by nothing. Patient reports occasional nausea, gradual onset headache, nonproductive cough, throat pain, congestion, and extensive body aches. Patient denies neck pain, chest pain, SOB, and urinary sx. In the ED course the patient was given fluids and test for influenza A and B. If positive for influenza, she will be provided with Tamiflu. Additionally, a urinalysis and a CXR were done. - Diagnoses Differential Diagnosis/HQI/PQRI: Positive: Influenza, Other - UTI, dehydration <Wallace Freire - Last Filed: 05/07/17 10:40> <Man George - Last Filed: 05/07/17 11:41> - Diagnoses Provider Diagnoses: Flu-like symptoms Discharge - Discharge Plan Discharge Disposition Comment: Patient signed out to Dr. [place] awaiting flu and CXR results <Wallace Freire - Last Filed: 05/07/17 10:40> <Man George - Last Filed: 05/07/17 11:41> - Discharge Plan Condition: Fair Disposition: OTHER Prescriptions: Benzonatate [TESSALON 200 MG CAP] 200 mg PO Q8HR #14 cap traMADol TAB* [Ultram*] 50 mg PO Q6HR PRN #10 tab MDD 150mg PRN Reason: Pain Patient Education Materials: Influenza (ED) Referrals: Nisha Dominguez MD [Primary Care Provider] - The documentation as recorded by the Manda kenny Jason accurately reflects the service I personally performed and the decisions made by Tani nunez Jerry, MD.
== END 2017-05-07 11:57 ==
LOC: ED 08:56
DX: J11.1 Influenza due to unidentified influenza virus with other respiratory manifestations (principal); I51.7 Cardiomegaly; F17.210 Nicotine dependence, cigarettes, uncomplicated
CPT/HCPCS: 36415; 71046; 80053; 81003; 81015; 83605; 85027; 87077; 87086; 87186; 87502; 96361; 96374; 99283; A9270-GY; J2765

== ENCOUNTER 2018-08-19 14:30 | Emergency (ER) | payer OTHER ==
--- OUTSIDE RECORDS SUMMARY | 2018-08-19 14:46 | XMS REPORT | Continuity of Care Document ---
:1960 External Reference #:[id number] Author Name Emerita Talbert Care Team Providers Name Role Phone Nisha Dominguez MD Primary Care Physician Unavailable Payers Date Identification Numbers Payment Provider Subscriber Policy Number: [id number] [employer] Medicaid Kane Ayoub PayID: [id number] [address] [address] [place] [address] Expires: 2014 Policy Number: [id number] Medicaid Kane Ayoub Group Name: 1 1 [address] PayID: [id number] [place] [address] Advance Directives Description No Information Available Problems Active Problems Provider Date Immunologic Shiraz Diallo M.D. Onset: 01/26/2015 Chronic pain Shiraz Diallo M.D. Onset: 01/26/2015 Paroxysmal supraventricular tachycardia Amara Wright, N.P. Onset: 2018 Supraventricular premature beats Amara Wright, N.PEstela Onset: 06/09/2018 Family History Date Family Member(s) Observation Comments General Diabetes Father due to Liver Disease () Mother Diabetes Mother due to Diabetes () Siblings 9 Social History Type Date Description Comments Sex Unknown Marital Status Lives With Alone Occupation Unemployed Tobacco Use Start: Unknown Patient is a current cigarette smoker, smokes every day Tobacco Use Start: Unknown Currently smokes 1-5 Cigarettes Daily Smoking Status Reviewed: 08/03/18 Currently smokes 1-5 Cigarettes Daily ETOH Use Denies alcohol use Recreational Drug Use Denies Drug Use Tobacco Use Start: Unknown Patient is a current smoker, smokes every day Exercise Type/Frequency Does not exercise Allergies, Adverse Reactions, Alerts Description No Known Drug Allergies Medications Active Medications SIG Qnty Indications Ordering Date Provider Laura GUERRERO 1 by mouth every day 30caps R00.2 Amara Wright, 04/17/2018 120mg N.P. Caps ER 24HR Humira Pen inject 40 mg 2units M06.09 Giovany Mary, 11/18/2017 subcutaneously every M.D. 40mg/0.8ML PNKT other week Vitamin D Take 1 Capsule By 14caps Giovany Mary, 03/05/2017 (Ergocalciferol) Mouth Once Weekly M.D. [id number] Capsules Plaquenil Take 2 Tablets By 180tabs F17.210 Giovany Mary, 05/01/2016 200mg Mouth Every Day M.D. Tablets Folic Acid take one 90tabs M06.4 Giovany Mary, 01/31/2016 1mg capsule/tablet daily M.D. Tablets by mouth qd Methotrexate Take 8 Tablets By 64tabs M06.4 Giovany Mary, 01/31/2016 2.5mg Mouth Once Weekly On M.D. Tablets Wednesdays Ibuprofen 1 by mouth three Unknown 600mg times a day as needed Tablets Fluticasone 2 sprays each nostril Unknown Propionate daily as needed 50mcg/Act Suspension History Medications Diclofenac Sodium apply topically to 200gm Giovany Mary, 04/20/2018 - 3% feet, hands, wrist M.D. 05/19/2018 Gel three to four times a day as needed Hydrocodone-Acetamino take one 14tabs Giovany Mary, 11/12/2017 - phen capsule/tablet by M.D. 08/02/2018 7.5-325mg Tablets mouth twice daily as needed for acute pain Aspercreme apply twice daily to 6units Giovany Mary, 05/08/2017 - W/Lidocaine the painful joints M.D. 04/16/2018 4% Cream as needed Enbrel Sureclick inject 4units M06.4 Giovany Mary, 12/12/2016 - subcutaneously 50mg M.D. 11/18/2017 50mg/ml Solution every week pen Auto-Inject Aspercreme Max apply daily as 1units M06.09 Giovany Mary, 10/07/2016 - Roll-On Arthritis needed M.D. 08/02/2018 Strength 16% Liquid Enbrel 50mg sq every week, 11.76ml M06.4 Giovany Mary, 06/05/2016 - 50mg/ml Soln 3 month supply M.D. 12/12/2016 Prefill Syringe Prednisone please take 2 tabs 120tabs M06.4 Giovany Mary, 05/01/2016 - 5mg Tablets daily M.D. 04/29/2017 Cardizem 1 by mouth twice a 180tabs R00.2 Qutaybeh S. 03/12/2016 - 30mg Tablets day Maghaydah, 04/17/2018 M.D. J71-Nfzbdy take one 90units Giovany Mary, 02/23/2016 - 1mg Chewtabs capsule/tablet daily M.D. 04/28/2017 sublingually (in [place]) Cyanocobalamin sq once monthly; 75ml Giovany Mary, 02/22/2016 - please provide M.D. 02/23/2016 1000mcg/ML Solution appropriate needle and syringes for injection Prednisone 1 po qd 90tabs M06.4 Giovany Mary, 02/22/2016 - 20mg Tablets M.D. 05/01/2016 Ergocalciferol take 1 capsule by 14caps Giovany Mary, 02/08/2016 - mouth once weekly M.D. 05/01/2016 [id number] Capsules W29-Pchvkx take one 90units Giovany Mary, 02/08/2016 - 1mg Chewtabs capsule/tablet daily M.D. 02/22/2016 sublingually Prednisone 1 by mouth every day Unknown - 20mg Tablets 02/22/2016 Nitrofurantoin 1 by mouth q6hr Unknown - Macrocrystal 12/03/2015 100mg Capsules Advil as needed Unknown - 01/22/2016 Advair HFA 2 puff twice a day Unknown - 07/30/2017 115-21mcg/Act Aerosol Proair HFA 2 puffs by mouth Unknown - 108(90Base) every 6 hours as 07/30/2017 mcg/Act Aerosol needed Loratadine 1 by mouth every day Unknown - 10mg Tablets 04/28/2017 Triamcinolone apply thin film Unknown - Acetonide twice daily 04/14/2015 0.1% Cream Voltaren apply to affected Unknown - 1% Gel area twice a day, as 04/30/2017 needed Diclofenac Sodium apply topically to 200gm Giovany Mary, - 3% feet, hands, wrist M.DEstela 05/08/2017 Gel three to four times a day as needed Vitamin D High 1 by mouth once a Unknown - Potency week 04/23/2016 1000Unit Capsules Estradiol 1 po daily ( Pt has Unknown - 1mg one dose left - inst 11/12/2017 to f/u with MD to prescribe Medications Administered in Office Medication SIG Qnty Indications Ordering Provider Date Triamcinolone (Kenalog) Giovany Mary M.D. 04/20/2018 Injection Immunizations CPT Code Status Date Vaccine Reaction Lot # [id number] Given 03/29/2016 Pneumonia Vaccine no reaction noted [id number] Given 01/31/2016 Influ Virus Vaccine, [id number] Quadrivalent, Split Virus, [place] [id number] Given 01/11/2015 Pneumococcal Conjugate Vaccine 13 Valent For Intramuscular Use Vital Signs Date Vital Result Comment 08/03/2018 1:35pm Height 68 inches 5'8" Weight 213.00 lb Clothes/shoes Heart Rate 74 /min Radial BP Systolic Sitting 112 mmHg Rue Lg cuff BP Diastolic Sitting 60 mmHg Rue Lg cuff BP Systolic Standing 110 mmHg Rue Lg cuff BP Diastolic Standing 60 mmHg Rue Lg cuff BMI (Body Mass Index) 32.4 kg/m2 Ejection Fraction 55-60% Echo 06/26/2018 06/25/2018 1:43pm Height 68 inches 5'8" Weight 215.25 lb Heart Rate 75 /min BP Systolic Sitting 114 mmHg BP Diastolic Sitting 70 mmHg Pain Level 0 O2 % BldC Oximetry 98 % BMI (Body Mass Index) 32.7 kg/m2 06/09/2018 2:11pm Height 68 inches 5'8" Weight 215.00 lb with boots Heart Rate 66 /min BP Systolic Sitting 116 mmHg BP Diastolic Sitting 78 mmHg BMI (Body Mass Index) 32.7 kg/m2 04/20/2018 1:42pm Height 68 inches 5'8" Weight 220.00 lb Heart Rate 64 /min BP Systolic 118 mmHg BP Diastolic 76 mmHg Pain Level 5 O2 % BldC Oximetry 98 % BMI (Body Mass Index) 33.4 kg/m2 04/17/2018 10:09am Height 68 inches 5'8" Weight 213.00 lb Heart Rate 80 /min BP Systolic Sitting 116 mmHg Ule BP Diastolic Sitting 74 mmHg Ule BMI (Body Mass Index) 32.4 kg/m2 Ejection Fraction 50-55% ECHO 05/08/17 01/16/2018 10:56am Height 68 inches 5'8" Heart Rate 60 /min BP Systolic Sitting 110 mmHg BP Diastolic Sitting 60 mmHg Respiratory Rate 14 /min Pain Level 5 11/12/2017 4:34pm Height 68 inches 5'8" Weight 217.00 lb Heart Rate 61 /min BP Systolic Sitting 110 mmHg BP Diastolic Sitting 61 mmHg Respiratory Rate 14 /min Pain Level 3 BMI (Body Mass Index) 33.0 kg/m2 07/30/2017 9:46am Height 68 inches 5'8" Weight 212.00 lb w/shoes Heart Rate 72 /min BP Systolic Sitting 120 mmHg L/A LG Cuff BP Diastolic Sitting 74 mmHg L/A LG Cuff BMI (Body Mass Index) 32.2 kg/m2 Ejection Fraction 50-55% echo 201707/29/2017 10:46am Height 68 inches 5'8" Weight 214.38 lb Heart Rate 77 /min BP Systolic Sitting 122 mmHg BP Diastolic Sitting 80 mmHg Pain Level 4 O2 % BldC Oximetry 98 % BMI (Body Mass Index) 32.6 kg/m2 04/30/2017 11:16am Height 68 inches 5'8" Weight 223.00 lb Heart Rate 72 /min BP Systolic Sitting 124 mmHg BP Diastolic Sitting 80 mmHg Respiratory Rate 14 /min Pain Level 2 BMI (Body Mass Index) 33.9 kg/m2 04/29/2017 1:54pm Height 68 inches 5'8" Weight 223.25 lb with boots Heart Rate 60 /min BP Systolic Sitting 142 mmHg LA, l cuff BP Diastolic Sitting 78 mmHg LA, l cuff BMI (Body Mass Index) 33.9 kg/m2 Ejection Fraction 50%-55% echo 01/29/16 12/10/2016 11:03am Height 68 inches 5'8" Weight 227.00 lb Respiratory Rate 14 /min BMI (Body Mass Index) 34.5 kg/m2 10/07/2016 1:34pm Height 68 inches 5'8" Weight 223.38 lb Heart Rate 64 /min BP Systolic Sitting 110 mmHg BP Diastolic Sitting 76 mmHg Respiratory Rate 14 /min Pain Level 5 BMI (Body Mass Index) 34.0 kg/m2 06/05/2016 11:00am Height 68 inches 5'8" Heart Rate 64 /min BP Systolic Sitting 122 mmHg BP Diastolic Sitting 84 mmHg Respiratory Rate 14 /min Body Temperature 97.5 F Pain Level 5 05/01/2016 11:51am Height 68 inches 5'8" Heart Rate 70 /min BP Systolic Sitting 118 mmHg BP Diastolic Sitting 70 mmHg Respiratory Rate 14 /min Body Temperature 96.7 F Pain Level 7 04/24/2016 11:14am Weight 223.00 lb w/ boots Heart Rate 70 /min BP Systolic Sitting 128 mmHg Ra lrg cuff BP Diastolic Sitting 78 mmHg Ra lrg cuff Ejection Fraction 50% - 55% echo 01/29/16 03/29/2016 11:27am Height 68 inches 5'8" Weight 222.00 lb Heart Rate 64 /min BP Systolic Sitting 128 mmHg BP Diastolic Sitting 80 mmHg Body Temperature 98.1 F Pain Level 7 BMI (Body Mass Index) 33.8 kg/m2 03/12/2016 3:09pm Height 68 inches 5'8" Weight 220.50 lb with shoes Heart Rate 78 /min BP Systolic Sitting 126 mmHg LA lrg cuff BP Diastolic Sitting 82 mmHg LA lrg cuff BMI (Body Mass Index) 33.5 kg/m2 Ejection Fraction 50% - 55% echo 01/29/16 02/22/2016 10:07am Height 68 inches 5'8" BP Systolic Sitting 126 mmHg BP Diastolic Sitting 90 mmHg Respiratory Rate 16 /min Body Temperature 96.6 F Pain Level 10 01/31/2016 11:06am Height 68 inches 5'8" Weight 221.00 lb Heart Rate 60 /min irreg BP Systolic Sitting 130 mmHg BP Diastolic Sitting 80 mmHg Body Temperature 97.5 F Pain Level 9 BMI (Body Mass Index) 33.6 kg/m2 01/23/2016 11:04am Height 68 inches 5'8" Weight 220.25 lb with shoes/cane Heart Rate 78 /min BP Systolic Sitting 142 mmHg LA, large BP Diastolic Sitting 84 mmHg LA, large BMI (Body Mass Index) 33.5 kg/m2 Ejection Fraction 50-55% echo 11/10/14 01/03/2016 2:29pm Height 68 inches 5'8" Weight 214.00 lb Heart Rate 61 /min BP Systolic 149 mmHg BP Diastolic 82 mmHg BMI (Body Mass Index) 32.5 kg/m2 01/26/2015 1:06pm Height 64 inches 5'4" Weight 188.00 lb Heart Rate 64 /min BP Systolic Sitting 128 mmHg BP Diastolic Sitting 74 mmHg Pain Level 8 BMI (Body Mass Index) 32.3 kg/m2 10/26/2014 1:50pm Height 64.5 inches 5'4.50" Weight 174.00 lb [...] BMI (Body Mass Index) 29.4 kg/m2 10/18/2014 4:51pm Height 68 inches 5'8" Results Test Date Facility Test Result H/L Range Note Comp Metabolic Panel 07/27/2018 [facility] Sodium 142 mmol/L N 135-[address] [place] [address] [phone] Potassium 4.1 mmol/L N 3.5-5.0 Chloride 107 mmol/L N 101-111 Co2 Carbon Dioxide 29 mmol/L N 22-32 Anion Gap 6 mmol/L N 2-11 Glucose 76 mg/dL N 70-100 Blood Urea Nitrogen 13 mg/dL N 6-24 Creatinine 0.76 mg/dL N 0.51-0.95 BUN/Creatinine Ratio 17.1 N 8-20 Calcium 9.4 mg/dL N 8.6-10.3 Total Protein 6.8 g/dL N 6.4-8.9 Albumin 3.7 g/dL N 3.2-5.2 Globulin 3.1 g/dL N 2-4 Albumin/Globulin Ratio 1.2 N 1-3 Total Bilirubin 0.30 mg/dL N 0.2-1.0 Alkaline Phosphatase 80 U/L N 34-104 Alt 37 U/L N 7-52 Ast 33 U/L N 13-39 Egfr Non- 77.6 >60 Egfr 93.9 >60 1 Laboratory test 07/27/2018 [facility] Erythrocyte Sed 33 mm/Hr High 0-[address] [place] [address] [phone] C Reactive Protein 10.75 mg/L High <8.01 CBC Auto Diff 07/27/2018 [facility] White Blood 6.9 10^3/uL N 3.5-10.[address] [place] [address] [phone] Red Blood Count 4.11 10^6/uL N 3.70-4.87 Hemoglobin 13.7 g/dL N 12.0-16.0 Hematocrit 40 % N 33-41 Mean Corpuscular Volume 98 fL High 80-97 Mean Corpuscular Hemoglobin 33 pg High 27-31 Mean Corpuscular HGB Conc 34 g/dL N 31-36 Red Cell Distribution Width 15 % N 10.5-15 Platelet Count 230 10^3/uL N 150-450 Mean Platelet Volume 9.0 fL N 7.4-10.4 Abs Neutrophils 2.7 10^3/uL N 1.5-7.7 Abs Lymphocytes 3.7 10^3/uL N 1.0-4.8 Abs Monocytes 0.4 10^3/uL N 0-0.8 Abs Eosinophils 0.1 10^3/uL N 0-0.6 Abs Basophils 0 10^3/uL N 0-0.2 Abs Nucleated RBC 0 10^3/uL Granulocyte % 39.1 % Lymphocyte % 53.9 % Monocyte % 5.4 % Eosinophil % 1.5 % Basophil % 0.1 % Nucleated Red Blood Cells % 0.1 Laboratory test 04/23/2018 [facility] Erythrocyte Sed 19 mm/Hr N 0-[address] [place] [address] [phone] C Reactive Protein 8.43 mg/L High <8.01 CBC Auto Diff 04/23/2018 [facility] White Blood 8.2 10^3/uL N 3.5-10.[address] [place] [address] [phone] Red Blood Count 4.00 10^6/uL N 4.00-5.40 Hemoglobin 13.5 g/dL N 12.0-16.0 Hematocrit 40 % N 35-47 Mean Corpuscular Volume 99 fL High 80-97 Mean Corpuscular Hemoglobin 34 pg High 27-31 Mean Corpuscular HGB Conc 34 g/dL N 31-36 Red Cell Distribution Width 16 % High 10.5-15 Platelet Count 263 10^3/uL N 150-450 Mean Platelet Volume 9.3 fL N 7.4-10.4 Abs Neutrophils 4.4 10^3/uL N 1.5-7.7 Abs Lymphocytes 3.3 10^3/uL N 1.0-4.8 Abs Monocytes 0.4 10^3/uL N 0-0.8 Abs Eosinophils 0.1 10^3/uL N 0-0.6 Abs Basophils 0 10^3/uL N 0-0.2 Abs Nucleated RBC 0 10^3/uL Granulocyte % 53.3 % Lymphocyte % 40.4 % Monocyte % 5.0 % Eosinophil % 1.1 % Basophil % 0.2 % Nucleated Red Blood Cells % 0.1 Comp Metabolic Panel 04/23/2018 [facility] Sodium 141 mmol/L N 135-[address] [place] [address] [phone] Potassium 4.2 mmol/L N 3.5-5.0 Chloride 105 mmol/L N 101-111 Co2 Carbon Dioxide 32 mmol/L N 22-32 Anion Gap 4 mmol/L N 2-11 Glucose 79 mg/dL N 70-100 Blood Urea Nitrogen 21 mg/dL N 6-24 Creatinine 0.80 mg/dL N 0.51-0.95 BUN/Creatinine Ratio 26.3 High 8-20 Calcium 9.3 mg/dL N 8.6-10.3 Total Protein 6.4 g/dL N 6.4-8.9 Albumin 3.8 g/dL N 3.2-5.2 Globulin 2.6 g/dL N 2-4 Albumin/Globulin Ratio 1.5 N 1-3 Total Bilirubin 0.20 mg/dL N 0.2-1.0 Alkaline Phosphatase 67 U/L N 34-104 Alt 41 U/L N 7-52 Ast 29 U/L N 13-39 Egfr Non- 73.2 >60 Egfr 88.5 >60 2 Laboratory test 01/20/2018 [facility] Erythrocyte Sed 16 mm/Hr N 0-[address] [place] [address] [phone] C Reactive Protein 2.69 mg/L N <8.01 CBC Auto Diff 01/20/2018 [facility] White Blood 7.1 10^3/uL N 3.5-10.[address] [place] [address] [phone] Red Blood Count 4.23 10^6/uL N 4.00-5.40 Hemoglobin 13.9 g/dL N 12.0-16.0 Hematocrit 41 % N 35-47 Mean Corpuscular Volume 98 fL High 80-97 Mean Corpuscular Hemoglobin 33 pg High 27-31 Mean Corpuscular HGB Conc 34 g/dL N 31-36 Red Cell Distribution Width 14 % N 10.5-15 Platelet Count 233 10^3/uL N 150-450 Mean Platelet Volume 10.0 um3 N 7.4-10.4 Abs Neutrophils 3.6 10^3/uL N 1.5-7.7 Abs Lymphocytes 3.3 10^3/uL N 1.0-4.8 Abs Monocytes 0.1 10^3/uL N 0-0.8 Abs Eosinophils 0.1 10^3/uL N 0-0.6 Abs Basophils 0 10^3/uL N 0-0.2 Abs Nucleated RBC 0 10^3/uL Granulocyte % 50.6 % N 38-83 Lymphocyte % 46.4 % N 25-47 Monocyte % 1.9 % N 0-7 Eosinophil % 0.9 % N 0-6 Basophil % 0.2 % N 0-2 Nucleated Red Blood Cells % 0.1 Comp Metabolic Panel 01/20/2018 [facility] Sodium 142 mmol/L N 135-[address] [place] [address] [phone] Potassium 4.4 mmol/L N 3.5-5.0 Chloride 107 mmol/L N 101-111 Co2 Carbon Dioxide 29 mmol/L N 22-32 Anion Gap 6 mmol/L N 2-11 Glucose 83 mg/dL N 70-100 Blood Urea Nitrogen 13 mg/dL N 6-24 Creatinine 0.86 mg/dL N 0.51-0.95 BUN/Creatinine Ratio 15.1 N 8-20 Calcium 9.8 mg/dL N 8.6-10.3 Total Protein 6.7 g/dL N 6.4-8.9 Albumin 3.9 g/dL N 3.2-5.2 Globulin 2.8 g/dL N 2-4 Albumin/Globulin Ratio 1.4 N 1-3 Total Bilirubin 0.40 mg/dL N 0.2-1.0 Alkaline Phosphatase 78 U/L N 34-104 Alt 27 U/L N 7-52 Ast 26 U/L N 13-39 Egfr Non- 67.3 >60 Egfr 81.4 >60 3 Laboratory test 11/18/2017 [facility] Erythrocyte Sed 32 mm/Hr High 0-30 [address] [place] [address] [phone] C Reactive Protein 3.47 mg/L N <8.01 5 CBC Auto Diff 11/18/2017 [facility] White Blood 8.6 10^3/uL N 3.5-10.[address] [place] [address] [phone] Red Blood Count 4.25 10^6/uL N 4.00-5.40 Hemoglobin 14.0 g/dL N 12.0-16.0 Hematocrit 41 % N 35-47 Mean Corpuscular Volume 97 fL N 80-97 Mean Corpuscular Hemoglobin 33 pg High 27-31 Mean Corpuscular HGB Conc 34 g/dL N 31-36 Red Cell Distribution Width 15 % N 10.5-15 Platelet Count 331 10^3/uL N 150-450 Mean Platelet Volume 9.0 um3 N 7.4-10.4 Abs Neutrophils 5.6 10^3/uL N 1.5-7.7 Abs Lymphocytes 2.4 10^3/uL N 1.0-4.8 Abs Monocytes 0.6 10^3/uL N 0-0.8 Abs Eosinophils 0 10^3/uL N 0-0.6 Abs Basophils 0 10^3/uL N 0-0.2 Abs Nucleated RBC 0 10^3/uL Granulocyte % 65.3 % N 38-83 Lymphocyte % 27.7 % N 25-47 Monocyte % 6.5 % N 0-7 Eosinophil % 0.3 % N 0-6 Basophil % 0.2 % N 0-2 Nucleated Red Blood Cells % 0.1 Comp Metabolic Panel 11/18/2017 [facility] Sodium 139 mmol/L N 135-[address] [place] [address] [phone] Potassium 4.2 mmol/L N 3.5-5.0 Chloride 106 mmol/L N 101-111 Co2 Carbon Dioxide 26 mmol/L N 22-32 Anion Gap 7 mmol/L N 2-11 Glucose 79 mg/dL N 70-100 Blood Urea Nitrogen 16 mg/dL N 6-24 Creatinine 0.80 mg/dL N 0.51-0.95 BUN/Creatinine Ratio 20.0 N 8-20 Calcium 9.8 mg/dL N 8.6-10.3 Total Protein 7.3 g/dL N 6.4-8.9 Albumin 3.9 g/dL N 3.2-5.2 Globulin 3.4 g/dL N 2-4 Albumin/Globulin Ratio 1.1 N 1-3 Total Bilirubin 0.40 mg/dL N 0.2-1.0 Alkaline Phosphatase 97 U/L N 34-104 Alt 20 U/L N 7-52 Ast 20 U/L N 13-39 Egfr Non- 73.4 >60 Egfr 88.8 >60 6 Quantiferon 11/18/2017 [facility] QuantiFERON-Tb Negative Negative 7 Gold TB [address] [place] [address] [phone] TB1 Ag minus Nil Result -0.01 IU/mL TB2 Ag minus Nil Result -0.04 IU/mL TB Mitogen minus Nil Result > 10.00 IU/mL TB Nil Result 0.08 IU/mL 8 Laboratory test 07/31/2017 [facility] Erythrocyte Sed 22 mm/Hr N 0-30 [address] [place] [address] [phone] C Reactive Protein 3.14 mg/L N < 5.00 10 Vitamin D, 1,25 Dihydroxy 30 pg/mL 18-78 11 CBC Auto Diff 07/31/2017 [facility] White Blood 7.8 10^3/uL N 3.5-10.[address] [place] [address] [phone] Red Blood Count 4.31 10^6/uL N 4.0-5.4 Hemoglobin 13.3 g/dL N 12.0-16.0 Hematocrit 39 % N 35-47 Mean Corpuscular Volume 91 fL N 80-97 Mean Corpuscular Hemoglobin 31 pg N 27-31 Mean Corpuscular HGB Conc 34 g/dL N 31-36 Red Cell Distribution Width 16 % High 10.5-15 Platelet Count 236 10^3/uL N 150-450 Mean Platelet Volume 9.0 um3 N 7.4-10.4 Abs Neutrophils 4.5 10^3/uL N 1.5-7.7 Abs Lymphocytes 2.8 10^3/uL N 1.0-4.8 Abs Monocytes 0.4 10^3/uL N 0-0.8 Abs Eosinophils 0.1 10^3/uL N 0-0.6 Abs Basophils 0 10^3/uL N 0-0.2 Abs Nucleated RBC 0 10^3/uL Granulocyte % 57.2 % N 38-83 Lymphocyte % 36.1 % N 25-47 Monocyte % 5.4 % N 0-7 Eosinophil % 1.1 % N 0-6 Basophil % 0.2 % N 0-2 Nucleated Red Blood Cells % 0.1 Comp Metabolic Panel 07/31/2017 [facility] Sodium 140 mmol/L N 139-[address] [place] [address] [phone] Potassium 4.6 mmol/L N 3.5-5.0 Chloride 106 mmol/L N 101-111 Co2 Carbon Dioxide 29 mmol/L N 22-32 Anion Gap 5 mmol/L N 2-11 Glucose 74 mg/dL N 70-100 Blood Urea Nitrogen 12 mg/dL N 6-24 Creatinine 0.74 mg/dL N 0.51-0.95 BUN/Creatinine Ratio 16.2 N 8-20 Calcium 9.5 mg/dL N 8.6-10.3 Total Protein 6.8 g/dL N 6.4-8.9 Albumin 3.8 g/dL N 3.2-5.2 Globulin 3.0 g/dL N 2-4 Albumin/Globulin Ratio 1.3 N 1-3 Total Bilirubin 0.40 mg/dL N 0.2-1.0 Alkaline Phosphatase 98 U/L N 34-104 Alt 19 U/L N 7-52 Ast 21 U/L N 13-39 Egfr Non- 80.3 >60 Egfr 103.3 >60 12 Laboratory test 06/03/2017 [facility] Erythrocyte Sed 103 mm/Hr High 0-30 [address] [place], [place] [id number] [phone] C Reactive Protein 33.27 mg/L High < 5.00 14 CBC Auto Diff 06/03/2017 [facility] White Blood 10.2 10^3/uL N 3.5-10.[address] [place], [place] [id number] [phone] Red Blood Count 4.18 10^6/uL N 4.0-5.4 Hemoglobin 12.8 g/dL N 12.0-16.0 Hematocrit 38 % N 35-47 Mean Corpuscular Volume 91 fL N 80-97 Mean Corpuscular Hemoglobin 31 pg N 27-31 Mean Corpuscular HGB Conc 34 g/dL N 31-36 Red Cell Distribution Width 13 % N 10.5-15 Platelet Count 464 10^3/uL High 150-450 Mean Platelet Volume 9 um3 N 7.4-10.4 Abs Neutrophils 6.0 10^3/uL N 1.5-7.7 Abs Lymphocytes 3.0 10^3/uL N 1.0-4.8 Abs Monocytes 1.0 10^3/uL High 0-0.8 Abs Eosinophils 0.1 10^3/uL N 0-0.6 Abs Basophils 0 10^3/uL N 0-0.2 Abs Nucleated RBC 0 10^3/uL Granulocyte % 58.9 % N 38-83 Lymphocyte % 29.6 % N 25-47 Monocyte % 10.2 % High 1-9 Eosinophil % 1.1 % N 0-6 Basophil % 0.2 % N 0-2 Nucleated Red Blood Cells % 0.1 Comp Metabolic Panel 06/03/2017 [facility] Sodium 140 mmol/L N 133-[address] [place] [address] [phone] Potassium 4.6 mmol/L N 3.5-5.0 Chloride 104 mmol/L N 101-111 Co2 Carbon Dioxide 28 mmol/L N 22-32 Anion Gap 8 mmol/L N 2-11 Glucose 79 mg/dL N 70-100 Blood Urea Nitrogen 13 mg/dL N 6-24 Creatinine 0.63 mg/dL N 0.51-0.95 BUN/Creatinine Ratio 20.6 High 8-20 Calcium 10.2 mg/dL N 8.6-10.3 Total Protein 7.6 g/dL N 6.4-8.9 Albumin 3.6 g/dL N 3.2-5.2 Globulin 4.0 g/dL N 2-4 Albumin/Globulin Ratio 0.9 Low 1-3 Total Bilirubin 0.30 mg/dL N 0.2-1.0 Alkaline Phosphatase 89 U/L N 34-104 Alt 17 U/L N 7-52 Ast 22 U/L N 13-39 Egfr Non- 96.7 >60 Egfr 124.4 >60 15 Comp Metabolic Panel 01/13/2017 [facility] Sodium 139 mmol/L N 133-[address] [place] [address] [phone] Potassium 4.4 mmol/L N 3.5-5.0 Chloride 104 mmol/L N 101-111 Co2 Carbon Dioxide 28 mmol/L N 22-32 Anion Gap 7 mmol/L N 2-11 Glucose 71 mg/dL N 70-100 Blood Urea Nitrogen 13 mg/dL N 6-24 Creatinine 0.74 mg/dL N 0.51-0.95 BUN/Creatinine Ratio 17.6 N 8-20 Calcium 9.4 mg/dL N 8.6-10.3 Total Protein 7.0 g/dL N 6.4-8.9 Albumin 3.8 g/dL N 3.2-5.2 Globulin 3.2 g/dL N 2-4 Albumin/Globulin Ratio 1.2 N 1-3 Total Bilirubin 0.40 mg/dL N 0.2-1.0 Alkaline Phosphatase 70 U/L N 34-104 Alt 16 U/L N 7-52 Ast 24 U/L N 13-39 Egfr Non- 80.3 N >60 Egfr 103.3 N >60 16 Laboratory test 12/10/2016 [facility] C Reactive 9.88 mg/L High < 5.00 [address] [place] [address] [phone] CBC Auto Diff 12/10/2016 [facility] White Blood 8.2 N 3.5- 10.[address] Count 10^3/[place] [address] [phone] Red Blood Count 4.05 10^6/uL N 4.0-5.4 Hemoglobin 13.3 g/dL N 12.0-16.0 Hematocrit 39 % N 35-47 Mean Corpuscular Volume 96 fL N 80-97 Mean Corpuscular Hemoglobin 33 pg High 27-31 Mean Corpuscular HGB Conc 34 g/dL N 31-36 Red Cell Distribution Width 16 % High 10.5-15 Platelet Count 282 10^3/uL N 150-450 Mean Platelet Volume 9 um3 N 7.4-10.4 Abs Neutrophils 4.4 10^3/uL N 1.5-7.7 Abs Lymphocytes 3.3 10^3/uL N 1.0-4.8 Abs Monocytes 0.4 10^3/uL N 0-0.8 Abs Eosinophils 0.1 10^3/uL N 0-0.6 Abs Basophils 0 10^3/uL N 0-0.2 Abs Nucleated RBC 0.01 10^3/uL N Granulocyte % 53.5 % N 38-83 Lymphocyte % 40.0 % N 25-47 Monocyte % 4.8 % N 1-9 Eosinophil % 1.5 % N 0-6 Basophil % 0.2 % N 0-2 Nucleated Red Blood Cells % 0.1 N Laboratory test 12/10/2016 [facility] Erythrocyte Sed 22 mm/Hr N 0-[address] [place] [address] [phone] TSH (Thyroid Stim Horm) 3.02 mcIU/mL N 0.34-5.60 18 Comp Metabolic Panel 12/10/2016 [facility] Sodium 141 mmol/L N 133-[address] [place] [address] [phone] Potassium 4.1 mmol/L N 3.5-5.0 Chloride 105 mmol/L N 101-111 Co2 Carbon Dioxide 31 mmol/L N 22-32 Anion Gap 5 mmol/L N 2-11 Glucose 97 mg/dL N 70-100 Blood Urea Nitrogen 11 mg/dL N 6-24 Creatinine 0.72 mg/dL N 0.51-0.95 BUN/Creatinine Ratio 15.3 N 8-20 Calcium 9.3 mg/dL N 8.6-10.3 Total Protein 6.5 g/dL N 6.4-8.9 Albumin 3.6 g/dL N 3.2-5.2 Globulin 2.9 g/dL N 2-4 Albumin/Globulin Ratio 1.2 N 1-3 Total Bilirubin 0.50 mg/dL N 0.2-1.0 Alkaline Phosphatase 74 U/L N 34-104 Alt 42 U/L N 7-52 Ast 33 U/L N 13-39 Egfr Non- 83.2 N >60 Egfr 107.0 N >60 19 Lipid Profile 12/10/2016 [facility] Triglycerides 113 mg/dL N 20 (Trig/Chol/HDL) [address] [place] [address] [phone] Cholesterol 176 mg/dL N 21 HDL Cholesterol 49.9 mg/dL N 22 LDL Cholesterol 104 mg/dL N 23 Laboratory test 10/11/2016 [facility] Erythrocyte Sed 50 mm/Hr High 0-[address] [place] [address] [phone] CBC Auto Diff 10/11/2016 [facility] White Blood 5.7 N 3.5- 10.[address] Count 10^3/[place] [address] [phone] Red Blood Count 4.06 10^6/uL N 4.0-5.4 Hemoglobin 13.0 g/dL N 12.0-16.0 Hematocrit 39 % N 35-47 Mean Corpuscular Volume 97 fL N 80-97 Mean Corpuscular Hemoglobin 32 pg High 27-31 Mean Corpuscular HGB Conc 33 g/dL N 31-36 Red Cell Distribution Width 14 % N 10.5-15 Platelet Count 306 10^3/uL N 150-450 Mean Platelet Volume 9 um3 N 7.4-10.4 Abs Neutrophils 2.5 10^3/uL N 1.5-7.7 Abs Lymphocytes 2.8 10^3/uL N 1.0-4.8 Abs Monocytes 0.3 10^3/uL N 0-0.8 Abs Eosinophils 0.1 10^3/uL N 0-0.6 Abs Basophils 0 10^3/uL N 0-0.2 Abs Nucleated RBC 0 10^3/uL N Granulocyte % 43.5 % N 38-83 Lymphocyte % 48.8 % High 25-47 Monocyte % 4.8 % N 1-9 Eosinophil % 2.5 % N 0-6 Basophil % 0.4 % N 0-2 Nucleated Red Blood Cells % 0 N Comp Metabolic Panel 10/11/2016 [facility] Sodium 137 mmol/L N 133-[address] [place] [address] [phone] Potassium 4.3 mmol/L N 3.5-5.0 Chloride 107 mmol/L N 101-111 Co2 Carbon Dioxide 27 mmol/L N 22-32 Anion Gap 3 mmol/L N 2-11 Glucose 95 mg/dL N 70-100 Blood Urea Nitrogen 15 mg/dL N 6-24 Creatinine 0.80 mg/dL N 0.51-0.95 BUN/Creatinine Ratio 18.8 N 8-20 Calcium 9.3 mg/dL N 8.6-10.3 Total Protein 6.6 g/dL N 6.4-8.9 Albumin 3.6 g/dL N 3.2-5.2 Globulin 3.0 g/dL N 2-4 Albumin/Globulin Ratio 1.2 N 1-3 Total Bilirubin 0.30 mg/dL N 0.2-1.0 Alkaline Phosphatase 75 U/L N 34-104 Alt 30 U/L N 7-52 Ast 42 U/L High 13-39 Egfr Non- 73.7 N >60 Egfr 94.7 N >60 24 Laboratory test 10/11/2016 [facility] C Reactive 11.11 High < 5.00 [address] Protein mg/[place] [address] [phone] Laboratory test 06/05/2016 [facility] Erythrocyte Sed 22 mm/Hr N 0-30 [address] [place] [address] [phone] C Reactive Protein 7.40 mg/L High < 5.00 27 Quantiferon Gold 06/05/2016 [facility] M tuberculosis Negative N Negative [address] [place] [address] [phone] TB Ag minus Nil Result -0.01 IU/mL N TB Mitogen minus Nil Result > 10.00 IU/mL N TB Nil Result 0.07 IU/mL N 29 CBC Auto 06/05/2016 [facility] White Blood 11.1 10^3/uL High 3.5-10.[address] [place] [address] [phone] Red Blood Count 4.68 10^6/uL N 4.0-5.4 Hemoglobin 14.5 g/dL N 12.0-16.0 Hematocrit 44 % N 35-47 Mean Corpuscular Volume 94 fL N 80-97 Mean Corpuscular Hemoglobin 31 pg N 27-31 Mean Corpuscular HGB Conc 33 g/dL N 31-36 Red Cell Distribution Width 15 % N 10.5-15 Platelet Count 274 10^3/uL N 150-450 Mean Platelet Volume 9 um3 N 7.4-10.4 Abs Neutrophils 7.0 10^3/uL N 1.5-7.7 Abs Lymphocytes 3.4 10^3/uL N 1.0-4.8 Abs Monocytes 0.6 10^3/uL N 0-0.8 Abs Eosinophils 0.1 10^3/uL N 0-0.6 Abs Basophils 0 10^3/uL N 0-0.2 Abs Nucleated RBC 0 10^3/uL N Granulocyte % 62.9 % N 38-83 Lymphocyte % 30.4 % N 25-47 Monocyte % 5.8 % N 1-9 Eosinophil % 0.6 % N 0-6 Basophil % 0.3 % N 0-2 Nucleated Red Blood Cells % 0 N Comp Metabolic Panel 06/05/2016 [facility] Sodium 139 mmol/L N 133-145 [address] [place] [address] [phone] Potassium 3.7 mmol/L N 3.5-5.0 Chloride 103 mmol/L N 101-111 Co2 Carbon Dioxide 30 mmol/L N 22-32 Anion Gap 6 mmol/L N 2-11 Glucose 107 mg/dL High 70-100 Blood Urea Nitrogen 15 mg/dL N 6-24 Creatinine 0.82 mg/dL N 0.51-0.95 BUN/Creatinine Ratio 18.3 N 8-20 Calcium 9.2 mg/dL N 8.6-10.3 Total Protein 6.9 g/dL N 6.4-8.9 Albumin 3.7 g/dL N 3.2-5.2 Globulin 3.2 g/dL N 2-4 Albumin/Globulin Ratio 1.2 N 1-3 Total Bilirubin 0.30 mg/dL N 0.2-1.0 Alkaline Phosphatase 63 U/L N 34-104 Alt 16 U/L N 7-52 Ast 13 U/L N 13-39 Egfr Non- 71.6 N >60 Egfr 92.1 N >60 30 Laboratory test 04/29/2016 [facility] C Reactive 8.58 mg/L High < 5.00 [address] [place] [address] [phone] Erythrocyte Sed Rate 19 mm/Hr N 0-30 CBC Auto Diff 04/29/2016 [facility] White Blood 9.7 10^3/uL N 3.5-10.[address] [place] [address] [phone] Red Blood Count 4.51 10^6/uL N 4.0-5.4 Hemoglobin 13.8 g/dL N 12.0-16.0 Hematocrit 42 % N 35-47 Mean Corpuscular Volume 92 fL N 80-97 Mean Corpuscular Hemoglobin 31 pg N 27-31 Mean Corpuscular HGB Conc 33 g/dL N 31-36 Red Cell Distribution Width 14 % N 10.5-15 Platelet Count 237 10^3/uL N 150-450 Mean Platelet Volume 10 um3 N 7.4-10.4 Abs Neutrophils 5.3 10^3/uL N 1.5-7.7 Abs Lymphocytes 3.7 10^3/uL N 1.0-4.8 Abs Monocytes 0.6 10^3/uL N 0-0.8 Abs Eosinophils 0.1 10^3/uL N 0-0.6 Abs Basophils 0 10^3/uL N 0-0.2 Abs Nucleated RBC 0.01 10^3/uL N Granulocyte % 54.6 % N 38-83 Lymphocyte % 37.9 % N 25-47 Monocyte % 6.6 % N 1-9 Eosinophil % 0.6 % N 0-6 Basophil % 0.3 % N 0-2 Nucleated Red Blood Cells % 0.1 N Comp Metabolic Panel 04/29/2016 [facility] Sodium 142 mmol/L N 133-[address] [place] [address] [phone] Potassium 3.8 mmol/L N 3.5-5.0 Chloride 106 mmol/L N 101-111 Co2 Carbon Dioxide 31 mmol/L N 22-32 Anion Gap 5 mmol/L N 2-11 Glucose 73 mg/dL N 70-100 Blood Urea Nitrogen 17 mg/dL N 6-24 Creatinine 0.83 mg/dL N 0.51-0.95 BUN/Creatinine Ratio 20.5 High 8-20 Calcium 9.0 mg/dL N 8.6-10.3 Total Protein 6.0 g/dL Low 6.4-8.9 Albumin 3.3 g/dL N 3.2-5.2 Globulin 2.7 g/dL N 2-4 Albumin/Globulin Ratio 1.2 N 1-3 Total Bilirubin 0.30 mg/dL N 0.2-1.0 Alkaline Phosphatase 51 U/L N 34-104 Alt 14 U/L N 7-52 Ast 13 U/L N 13-39 Egfr Non- 70.6 N >60 Egfr 90.8 N >60 32 Laboratory test 02/26/2016 [facility] Erythrocyte Sed 33 mm/Hr High 0-30 [address] [place] [address] [phone] C Reactive Protein 11.45 mg/L High < 5.00 34 CBC Auto Diff 02/26/2016 [facility] White Blood 8.7 10^3/uL N 3.5-10.[address] Count [place], [place] [id number] [phone] Red Blood Count 4.29 10^6/uL N 4.0-5.4 Hemoglobin 13.2 g/dL N 12.0-16.0 Hematocrit 39 % N 35-47 Mean Corpuscular Volume 92 fL N 80-97 Mean Corpuscular Hemoglobin 31 pg N 27-31 Mean Corpuscular HGB Conc 34 g/dL N 31-36 Red Cell Distribution Width 13 % N 10.5-15 Platelet Count 317 10^3/uL N 150-450 Mean Platelet Volume 9 um3 N 7.4-10.4 Abs Neutrophils 5.4 10^3/uL N 1.5-7.7 Abs Lymphocytes 2.9 10^3/uL N 1.0-4.8 Abs Monocytes 0.3 10^3/uL N 0-0.8 Abs Eosinophils 0 10^3/uL N 0-0.6 Abs Basophils 0 10^3/uL N 0-0.2 Abs Nucleated RBC 0.01 10^3/uL N Granulocyte % 62.4 % N 38-83 Lymphocyte % 32.9 % N 25-47 Monocyte % 3.8 % N 1-9 Eosinophil % 0.5 % N 0-6 Basophil % 0.4 % N 0-2 Nucleated Red Blood Cells % 0.1 N Comp Metabolic Panel 02/26/2016 [facility] Sodium 142 mmol/L N 133-[address] [place] [address] [phone] Potassium 3.6 mmol/L N 3.5-5.0 Chloride 106 mmol/L N 101-111 Co2 Carbon Dioxide 31 mmol/L N 22-32 Anion Gap 5 mmol/L N 2-11 Glucose 79 mg/dL N 70-100 Blood Urea Nitrogen 14 mg/dL N 6-24 Creatinine 0.83 mg/dL N 0.51-0.95 BUN/Creatinine Ratio 16.9 N 8-20 Calcium 9.0 mg/dL N 8.6-10.3 Total Protein 6.4 g/dL N 6.4-8.9 Albumin 3.4 g/dL N 3.2-5.2 Globulin 3.0 g/dL N 2-4 Albumin/Globulin Ratio 1.1 N 1-3 Total Bilirubin 0.30 mg/dL N 0.2-1.0 Alkaline Phosphatase 67 U/L N 34-104 Alt 14 U/L N 7-52 Ast 19 U/L N 13-39 Egfr Non- 70.6 N >60 Egfr 90.8 N >60 35 Laboratory test 02/26/2016 [facility] Creatine 61 U/L N 10- 223 [address] Kinase(CK) [place] [address] [phone] Rosanna Igg AB Reflex 02/26/2016 [facility] SS-A/Ro Antibody <0.2 U N [address] [place] [address] [phone] SS-B/La Antibody <0.2 U N 38 Sm (Larry) IgG Antibody <0.2 U N 39 U1-nRNP Antibody <0.2 U N 40 Scl-70 (Scleroderma) Antibody <0.2 U N 41 Kavitha-1 Antibody <0.2 U N 42 Laboratory test 02/26/2016 [facility] Anti Double <12.3 IU/mL N [address] [place] [address] [phone] Complement C3 113 mg/dL N 75 - 175 44 Complement C4 20 mg/dL N 14 - 40 45 Cardiolipin 02/26/2016 [facility] Phospholipid Ab < 4.0 MPL N 46 Igg/Igm [address] IgM, [place] [address] [phone] Phospholipid Ab IgG < 4.0 GPL N 47 Laboratory test 02/05/2016 [facility] Anti Nuclear >12.0 U Abnormal [address] [place] [address] [phone] Rheumatoid Factor <15 IU/mL N <15 49 Uric Acid 4.6 mg/dL N 2.3-6.6 Cyclic Citrullinated Pep Igg <15.6 U N 50 Erythrocyte Sed Rate 22 mm/Hr N 0-30 C Reactive Protein 8.30 mg/L High < 5.00 51 CBC Auto Diff 02/05/2016 [facility] White Blood 9.0 10^3/uL N 3.5-10.[address] [place] [address] [phone] Red Blood Count 4.60 10^6/uL N 4.0-5.4 Hemoglobin 14.1 g/dL N 12.0-16.0 Hematocrit 42 % N 35-47 Mean Corpuscular Volume 91 fL N 80-97 Mean Corpuscular Hemoglobin 31 pg N 27-31 Mean Corpuscular HGB Conc 34 g/dL N 31-36 Red Cell Distribution Width 14 % N 10.5-15 Platelet Count 290 10^3/uL N 150-450 Mean Platelet Volume 10 um3 N 7.4-10.4 Abs Neutrophils 4.5 10^3/uL N 1.5-7.7 Abs Lymphocytes 3.8 10^3/uL N 1.0-4.8 Abs Monocytes 0.5 10^3/uL N 0-0.8 Abs Eosinophils 0.1 10^3/uL N 0-0.6 Abs Basophils 0.1 10^3/uL N 0-0.2 Abs Nucleated RBC 0 10^3/uL N Granulocyte % 50.1 % N 38-83 Lymphocyte % 42.4 % N 25-47 Monocyte % 6.0 % N 1-9 Eosinophil % 0.9 % N 0-6 Basophil % 0.6 % N 0-2 Nucleated Red Blood Cells % 0 N Comp Metabolic Panel 02/05/2016 [facility] Sodium 140 mmol/L N 133-[address] [place] [address] [phone] Potassium 3.3 mmol/L Low 3.5-5.0 Chloride 103 mmol/L N 101-111 Co2 Carbon Dioxide 30 mmol/L N 22-32 Anion Gap 7 mmol/L N 2-11 Glucose 74 mg/dL N 70-100 Blood Urea Nitrogen 16 mg/dL N 6-24 Creatinine 0.76 mg/dL N 0.51-0.95 BUN/Creatinine Ratio 21.1 High 8-20 Calcium 9.0 mg/dL N 8.6-10.3 Total Protein 6.7 g/dL N 6.4-8.9 Albumin 3.5 g/dL N 3.2-5.2 Globulin 3.2 g/dL N 2-4 Albumin/Globulin Ratio 1.1 N 1-3 Total Bilirubin 0.50 mg/dL N 0.2-1.0 Alkaline Phosphatase 61 U/L N 34-104 Alt 15 U/L N 7-52 Ast 14 U/L N 13-39 Egfr Non- 78.2 N >60 Egfr 100.5 N >60 52 Laboratory test 02/05/2016 [facility] Angiotensin 27 U/L N 8 - 53 [address] [place] [address] [phone] Lyme Disease Serology Negative N Negative 54 Vitamin B12 And 02/05/2016 [facility] Vitamin B12 200 pg/mL N 180-914 55 Folate Serum [address] [place] [address] [phone] Folic Acid (Folate) 12.42 ng/mL N >3.99 Vitamin D 1,25 02/05/2016 [facility] Vitamin D 16.6 ng/mL Low 30-50 And Vitamin D,[address] Total 25(Oh) [place] [address] [phone] Vitamin D, 1,25 Dihydroxy 43 pg/mL N 18-78 56 Hepatitis 02/05/2016 [facility] Hepatitis C Nonreactive N Nonreactive Acute Panel [address] [place] [address] [phone] Hepatitis A AB Igm Nonreactive N Nonreactive Hepatitis B Core AB Igm Nonreactive N Nonreactive Hepatitis B Surface Ag Nonreactive N Nonreactive Laboratory 01/26/2015 [facility] Imani Reflexed Abnormal Negative test finding [address] ([place] [address] Antibodies) [phone] Anti Dna (Double Stranded Dna) Negative N Negative Rosanna Screen Negative N Negative 57 Urinalysis Profile 01/26/2015 [facility] Urine Color Yellow N [address] [place] [address] [phone] Urine Appearance Cloudy N Urine Specific Dawson 1.013 N 1.010-1.030 Urine pH 5.0 N 5-9 Urine Urobilinogen Negative N Negative Urine Ketones Negative N Negative Urine Protein Negative N Negative Urine Leukocytes 1+ Abnormal Negative Urine Blood Negative N Negative Urine Nitrite Negative N Negative Urine Bilirubin Negative N Negative Urine Glucose Negative N Negative Urine White Blood Cell Trace(0-5/hpf) N Absent Urine Red Blood Cell 1+(3-5/hpf) Abnormal Absent Urine Bacteria 1+ Abnormal Absent Urine Squamous Epithelial Cell Present Abnormal Absent Urine Yeast Present Abnormal Absent Laboratory 01/26/2015 [facility] Urine Culture SEE RESULT 58 test finding [address] [place] [address] Sensitivities [phone] Imani Hep-2 01/26/2015 [facility] Imani Pattern Homogeneous N Negative [address] [place] [address] [phone] Imani Titer 1:2560 N <1:80 Imani Reviewed By MD Dane Meier <SEE NOTE> N 59 1 Because ethnic data is not always [...] 5 Kidney failure <15 (or dialysis) 2 Because ethnic data is not always readily [...] 15-29 5 Kidney failure <15 (or dialysis) 3 Because ethnic data is not always readily [...] 15-29 5 Kidney failure <15 (or dialysis) 4 Please check labs to do today 5 Please check labs to do today 6 Because ethnic data is not always readily [...] 15-29 5 Kidney failure <15 (or dialysis) 7 No interferon-gamma response to M. tuberculosis antigens was detected. Infection with M. tuberculosis is unlikely. A single negative result does not exclude infection with M. tuberculosis. In patients at high risk for M.tuberculosis infection, a second test should be considered in accordance with the 2017 ATS/IDSA/CDC Clinical Practice Guidelines for Diagnosis of Tuberculosis in Adults and Children [Mala RIOS et. al. Clin. Infect. Dis. 2017;64(2):111-115]. 8 Test Performed by: [facility] [place] [address] 9 Please check labs this week 10 Acute inflammation: >10.00 11 ADDITIONAL INFORMATION This test was developed and its performance characteristics determined by [facility] in a manner consistent with CLIA requirements. This test has not been cleared or approved by the U.S. Food and Drug Administration. Test Performed by: [facility] [place] [address] 12 Because ethnic data is not always readily [...] 15-29 5 Kidney failure <15 (or dialysis) 13 Please check labs today 14 Acute inflammation: >10.00 15 Because ethnic data is not always [...] 5 Kidney failure <15 (or dialysis) 16 Because ethnic data is not always readily [...] 15-29 5 Kidney failure <15 (or dialysis) 17 Acute inflammation: >10.00 18 FASTING 19 Because ethnic data is not always readily [...] 15-29 5 Kidney failure <15 (or dialysis) 20 Desirable <150 Borderline high 150-199 High 200-499 Very High >500 21 Desirable <200 Borderline high 200-239 High >239 22 Low <40 Desirable: 40-60 High: >60 23 Desirable: <100 mg/dL Near Optimal: 100-129 mg/dL Borderline High: 130-159 mg/dL High: 160-189 mg/dL Very High: >189 mg/dL 24 Because ethnic data is not always readily [...] 15-29 5 Kidney failure <15 (or dialysis) 25 Acute inflammation: >10.00 26 Please check today 27 Acute inflammation: >10.00 28 No interferon-gamma response to M. tuberculosis antigens was detected. Infection with M. tuberculosis is unlikely. A negative result alone does not exclude infection with M. tuberculosis. For detailed information regarding test interpretation see: [email or web address]/ [email or web address] 29 Test Performed by: [address] [address] [employer] Operator: Yash Arenas II, M.D., Ph.D. 30 Because ethnic data is not always readily [...] 15-29 5 Kidney failure <15 (or dialysis) 31 Acute inflammation: >10.00 32 Because ethnic data is not always readily [...] 15-29 5 Kidney failure <15 (or dialysis) 33 Please check today 34 Acute inflammation: >10.00 35 Because ethnic data is not always readily [...] 15-29 5 Kidney failure <15 (or dialysis) 36 Please check today 37 REFERENCE VALUE <1.0 (Negative) 38 REFERENCE VALUE <1.0 (Negative) 39 REFERENCE VALUE <1.0 (Negative) 40 REFERENCE VALUE <1.0 (Negative) 41 REFERENCE VALUE <1.0 (Negative) 42 REFERENCE VALUE <1.0 (Negative) Test Performed by: [place] [address] [employer]: Yash Arenas II, M.D., Ph.D. 43 REFERENCE VALUE <30.0 (Negative) Test Performed by: [place] [address] [employer] Operator: Yash Arenas II, M.D., Ph.D. 44 Test Performed by: [place] [address] [employer]: Yash Arenas II, M.D., Ph.D. 45 Test Performed by: [place] [address] [employer]: Yash Arenas II, M.D., Ph.D. 46 REFERENCE VALUE <10.0 (Negative) 47 REFERENCE VALUE <10.0 (Negative) Test Performed by: [place] [address] [employer] Operator: Yash Arenas II, M.D., Ph.D. 48 Interpretation: Strong Positive (>=6.0) REFERENCE VALUE <=1.0 (Negative) Test Performed by: [place] [address] [employer] Operator: Yash Arenas II, M.D., Ph.D. 49 Test Performed by: [place] [address] [employer] Operator: Yash Arenas II, M.D., Ph.D. 50 REFERENCE VALUE <20.0 (Negative) Test Performed by: [place] [address] [employer] Operator: Yash Arenas II, M.D., Ph.D. 51 Acute inflammation: >10.00 52 Because ethnic data is not always readily [...] 15-29 5 Kidney failure <15 (or dialysis) 53 Test Performed by: [place] [address] [employer]: Yash Arenas II, M.D., Ph.D. 54 Serologic response to B. burgdorferi infection is not detected, but cannot rule out early infection during which low or undetectable antibody levels to B. burgdorferi may be present. If clinically indicated, a new serum specimen should be submitted in 7-14 days. Test Performed by: [place] [address] [employer]: Yash Arenas II, M.D., Ph.D. 55 Normal Range 180 to 914 Indeterminate Range 145 to 180 Deficient Range <145 56 ADDITIONAL INFORMATION This test was developed and its performance characteristics determined by [facility] in a manner consistent with CLIA requirements. This test has not been cleared or approved by the U.S. Food and Drug Administration. Test Performed by: [place] [address] [employer] Operator: Yash Arenas II, M.D., Ph.D. 57 The above ROSANNA screen is designed for the detection of antibodies to extractable nuclear antigen (ROSANNA) in human serum. It is a combination test for the detection of antibodies to DOPE WORKER, Sm, SS-A (Ro), and SS-B (La) nuclear antigens. 58 SEE RESULT BELOW Name: AYOUBKANE VILLALTA : [address]: Shiraz Diallo MD Acct: [id number] Unit: [id number] AGE: 55 Location: LAB Re01/26/15 SEX: F Status: REG REF SPEC: [id number] BRADLEY: 01/26/[address] [facility] DR: Shiraz Diallo MD REQ: [id number] RECD: 01/26/158793 STATUS: COMP _ SOURCE: URINE SPDESC: ORDERED: Urine Culture Procedure Result Verified Site Urine Culture Final 01/28/15- 0845 ML Organism 1 NORMAL GEE [place] Count 1-10,000 (Few) CFU/ML * ML - MAIN LAB (PSC1) . END OF REPORT * ML=Testing performed at Main Lab DEPARTMENT OF PATHOLOGY, [address] [place] [address] Dane Duarte M.D. Director [facility] # [id number] Dane Duarte Procedures Date Code Description Status 06/26/2018 35044 ECHO Transthoracic, Real-Time 2D With Doppler And Completed Color Flow 06/26/2018 74159 ECHO Transthoracic, Real-Time 2D With Doppler And Completed Color Flow 05/20/2018 23717 Holter Monitor Review (24 hr)dr park & raeann only Completed 05/18/2018 66255 ECG Monitor/Recording W/Visual Superimposition Completed Scanning 04/20/2018 81638 Inject/Drain Joint/Bursa Intermediate W/O US Completed 04/17/2018 46007 EKG Tracing & Interpretation Completed 06/20/2017 54561 Holter Monitor Review (24 hr)dr park & raeann only Completed 06/19/2017 22644 ECG Monitor/Recording W/Visual Superimposition Completed Scanning 05/20/2017 99356 Holter Monitor Review (24 hr)dr park & raeann only Completed 05/20/2017 86843 ECG Monitor/Recording W/Visual Superimposition Completed Scanning 05/08/2017 89644 ECHO Transthoracic, Real-Time 2D With Doppler And Completed Color Flow 05/08/2017 37891 ECHO Transthoracic, Real-Time 2D With Doppler And Completed Color Flow 04/29/2017 95184 EKG Tracing & Interpretation Completed 02/26/2016 [id number] Bone Mineral Density Test Completed 02/07/2016 06180 Stress Test Supervsn W/Out I/R Completed 02/07/2016 59269 Treadmill Interp/Report Only Completed 02/06/2016 01260 Holter Monitor Review (24 hr)dr review & interp only Completed 02/05/2016 57338 ECG Monitor/Recording W/Visual Superimposition Completed Scanning 01/29/2016 72316 ECHO Transthoracic, Real-Time 2D With Doppler And Completed Color Flow 01/23/2016 87752 EKG Tracing & Interpretation Completed 12/09/2014 91495 Treadmill Interp/Report Only Completed 12/09/2014 31529 Stress Test Supervsn W/Out I/R Completed 11/13/2014 58293 Holter Monitoring 24 HR New Completed 11/10/2014 02109 ECHO Transthoracic, Real-Time 2D With Doppler And Completed Color Flow 11/09/2014 16869 Holter Monitoring 24 HR New Completed 10/26/2014 91667 EKG Tracing & Interpretation Completed Encounters Type Date Location Provider Dx Diagnosis Office Visit 06/25/2018 Rheumatology Giovany Mary M06.09 Rheumatoid 1:40p [facility] arthritis w/o rheumatoid factor, multiple sites Z79.899 Other custodial (current) drug therapy Office Visit 06/09/2018 Berry Escalante I47.1 Supraventricular 2:30p Cardiology Kyle, N.P. tachycardia I49.1 Atrial premature depolarization R94.31 Abnormal electrocardiogram [ECG] [EKG] I45.10 Unspecified right bundle-branch block Office Visit 04/20/2018 1:40p Rheumatology Giovany M06.09 [facility] Mary M.D. arthritis w/o rheumatoid factor, multiple sites Z79.899 Other custodial (current) drug therapy M25.572 Pain in left ankle and joints of left foot M51.36 Other intervertebral disc degeneration, lumbar region F17.210 Nicotine dependence, cigarettes, uncomplicated Office Visit 04/17/2018 Berry Maloney S. I47.1 Supraventricular 10:30a Cardiology Kyle, N.P. tachycardia R00.2 Palpitations I49.1 Atrial premature depolarization I49.3 Ventricular premature depolarization I34.0 Nonrheumatic mitral (valve) insufficiency Office Visit 01/16/2018 10:40a Rheumatology Giovany M06.09 [facility] Mary M.D. arthritis w/o rheumatoid factor, multiple sites Z79.899 Other custodial (current) drug therapy M51.36 Other intervertebral disc degeneration, lumbar region E55.9 Vitamin D deficiency, unspecified Office Visit 11/12/2017 4:40p Rheumatology Giovany M06.09 [facility] Mary M.D. arthritis w/o rheumatoid factor, multiple sites Z79.899 Other terminal superintendent (current) drug therapy Z79.52 senior care (current) use of systemic steroids M51.36 Other intervertebral disc degeneration, lumbar region Office Visit 07/30/2017 10:00a Colon Cardiology Amara Wright, R00.2 Palpitations N.P. I47.1 Supraventricular tachycardia I49.1 Atrial premature depolarization I49.3 Ventricular premature depolarization I34.0 Nonrheumatic mitral (valve) insufficiency Office Visit 07/29/2017 10:40a Rheumatology Giovany M06.Jacklyn [facility] Mary M.D. arthritis w/o rheumatoid factor, multiple sites Z79.899 Other terminal superintendent (current) drug therapy E55.9 Vitamin D deficiency, unspecified M06.4 Inflammatory polyarthropathy Office Visit 04/30/2017 10:40a Rheumatology Giovany M06.Jacklyn [facility] Mary M.D. arthritis w/o rheumatoid factor, multiple sites Z79.52 senior care (current) use of systemic steroids Z79.899 Other terminal superintendent (current) drug therapy M06.4 Inflammatory polyarthropathy Office Visit 04/29/2017 Colon Mauricio SEstela F17.210 Nicotine 2:00p Cardiology Emilio Rogers dependence, cigarettes, uncomplicated I34.0 Nonrheumatic mitral (valve) insufficiency I49.1 Atrial premature depolarization I47.1 Supraventricular tachycardia R00.2 Palpitations E66.9 Obesity, unspecified Office Visit 12/10/2016 11:00a Rheumatology Giovany M06.09 [facility] M.D. arthritis w/o rheumatoid factor, multiple sites Z79.52 senior care (current) use of systemic steroids Z79.899 Other custodial (current) drug therapy M06.4 Inflammatory polyarthropathy F17.210 Nicotine dependence, cigarettes, uncomplicated Office Visit 10/07/2016 1:20p Rheumatology Giovany M06.09 [facility] Mary M.D. 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 polyarthropathy Z79.899 Other custodial (current) drug therapy Z79.52 senior care (current) use of systemic steroids F17.210 Nicotine dependence, cigarettes, uncomplicated Office Visit 05/01/2016 Rheumatology Giovany M06.4 Inflammatory 11:40a [facility] Mary M.D. 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 F17.210 Nicotine dependence, cigarettes, uncomplicated Office Visit 04/24/2016 11:30a [facility] Jeniffer Ivy, I34.0 Nonrheumatic mitral PA (valve) insufficiency I49.1 Atrial premature depolarization I47.1 Supraventricular tachycardia Office Visit 03/29/2016 12:00p Rheumatology Giovany Mary, Miguel23 Encounter for [facility] immunization M06.4 Inflammatory polyarthropathy R76.0 Raised antibody titer Z79.899 Other custodial (current) drug therapy 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 R00.0 Tachycardia, 11:00a Cardiology Emilio Rogers unspecified R00.2 Palpitations R06.02 Shortness of breath I34.0 Nonrheumatic mitral (valve) insufficiency I36.1 Nonrheumatic tricuspid (valve) insufficiency R94.31 Abnormal electrocardiogram [ECG] [EKG] I45.10 Unspecified right bundle-branch block Office Visit 01/03/2016 2:15p Orthopedic Alejandro Clemons, M13.872 Other specified [facility] arthritis, left ankle and foot Office Visit 11/02/2015 10:15a [facility] Cristina N12 [facility],anabel Monique M.D. ial nephritis, Hospitalists not spcf as acute or chronic N81.4 Uterovaginal prolapse, unspecified J45.909 Unspecified asthma, uncomplicated Office Visit 11/01/2015 [facility] Cristina N12 [facility] 10:15a Assanabel meraz M.D. nephritis, not spcf as Hospitalists acute or chronic N81.4 Uterovaginal prolapse, unspecified J45.909 Unspecified asthma, uncomplicated Office Visit 10/31/2015 [facility] Cristina N12 Tubulo-interstitial 10:14a Assanabel meraz M.D. nephritis, not spcf as Hospitalists acute or chronic N81.4 Uterovaginal prolapse, unspecified J45.909 Unspecified asthma, uncomplicated Office 10/30/2015 [facility] Hallie N12 Tubulo-interstitial Visit 10:14a Assocanabel nephritis, not spcf as Hospitalists FABIANA Salazar acute or chronic N81.4 Uterovaginal prolapse, unspecified J45.909 Unspecified asthma, uncomplicated Office Visit 01/26/2015 1:00p Rheumatology Shiraz Endo, R76.0 Raised antibody [facility] titer G89.29 Other chronic pain Office 10/26/2014 Adarsh Martínez SEstela 794.31 Electrocardiogram Visit 2:40p [facility]iology [facility] Rogers (ECG) (EKG) Abnormal [facility] 426.4 Right Bundle Branch Block 786.50 Pain Chest Unspec 786.05 Shortness Of Breath 785.0 Tachycardia Unspec Plan of Treatment Future Appointment(s):09/23/2018 1:20 pm - Giovany Mary M.D. at [facility]08/03/2018 - Amara Wright, N.P.I47.1 Supraventricular tachycardiaFollow up:OV QSM [id number] Atrial premature [id number] Abnormal electrocardiogram [ECG] [EKG]R06.83 SnoringNew Orders:Sleep Study, Ordered: 08/03/18Referral:Symone Wood MD, Pulmonary Diseases
[2018-08-19] MEDS ORDERED: Amoxicillin/Clavulanate TAB* 500 MG PO ONE (18:24)
--- NOTE | 2018-08-19 18:25 | ED ---
Lower Extremity - HPI Summary HPI Summary: 58-year-old female presents with draining abscess from her right breast for the past week. She also admits to swelling to the top her foot. she states she is on her feet alot. States she has a history of arthritis and feels similar. She denies any history of gout. No swelling or tenderness to her MTP. She denies any fevers or chills. She also admits to occasional sinus congestion. no swelling or pain into her calfs. no injury. denies any history of MRSA. She has history of arthritis on methotrexate. - History of Current Complaint Chief Complaint: EDRashSkinAbscess Stated Complaint: LEG SWELLING PER PT Time Seen by Provider: 08/19/18 17:58 Pain Intensity: 7 - Allergies/Home Medications Allergies/Adverse Reactions: Allergies Allergy/AdvReac Type Severity Reaction Status Date / Time No Known Allergies Allergy Verified 08/19/18 14:38 PMH/Surg Hx/FS Hx/Imm Hx Endocrine/Hematology History: Denies: Hx Diabetes Cardiovascular History: Reports: Hx Angina - MID CHEST ACROSS CHEST AND OCC INTO MID BACK, Hx Hypertension Denies: Hx Congestive Heart Failure, Hx Coronary Artery Disease, Hx Hypercholesterolemia, Hx Myocardial Infarction, Hx Pacemaker/ICD, Hx Valvular Heart Disease Respiratory History: Reports: Hx Asthma History: Denies: Hx Renal Disease Comment Only: Other Problems/Disorders - HAS PESSARY Musculoskeletal History: Denies: Hx Osteoporosis Sensory History: Denies: Hx Hearing Aid Comment Only: Hx Contacts or Glasses - WEARS GLASSES Opthamlomology History: Comment Only: Hx Contacts or Glasses - WEARS GLASSES Psychiatric History: Denies: Hx Panic Disorder - Cancer History Hx Chemotherapy: No Hx Radiation Therapy: No - Surgical History Surgery Procedure, Year, and Place: UTERINE MESH 2015-. HYSTERECTOMY Infectious Disease History: No Infectious Disease History: Denies: Traveled Outside the [place] in Last 30 Days - Family History Known Family History: Positive: Unknown Negative: Hypertension, Blood Disorder - Social History Alcohol Use: None Hx Substance Use: No Substance Use Type: Reports: None Smoking Status (MU): Light Every Day Tobacco Smoker Type: Cigarettes Length of Time of Smoking/Using Tobacco: PT STATES SMOKED ABOUT 15 YEARS STOPPED FOR MANY YEARS THEN RESTARTED Have You Smoked in the Last Year: Yes Review of Systems Negative: Fever Negative: Chest Pain Negative: Shortness Of Breath Positive: Myalgia - right foot pain Positive: Rash All Other Systems Reviewed And Are Negative: Yes Physical Exam Triage Information Reviewed: Yes Vital Signs On Initial Exam: Initial Vitals Temp Pulse Resp BP Pulse Ox 97.6 F 83 16 123/61 99 08/19/18 14:33 08/19/18 14:33 08/19/18 14:33 08/19/18 14:33 08/19/18 14:33 Vital Signs Reviewed: Yes Appearance: Positive: Well-Appearing Skin: Positive: Warm, Dry, Other - draining open abscess to right breast with minimial erythema and no active drainage Head/Face: Positive: Normal Head/Face Inspection Eyes: Positive: Normal, Conjunctiva Clear ENT: Positive: Pharynx normal Respiratory/Lung Sounds: Positive: Clear to Auscultation, Breath Sounds Present Cardiovascular: Positive: Normal, RRR Abdomen Description: Positive: Nontender, Soft Bowel Sounds: Positive: Present Musculoskeletal: Positive: Strength/ROM Intact - right foot, Edema Right - top of foot, Other - no warmth to top of foot, no evidence of cellulitis or gout on exam Neurological: Positive: Normal Psychiatric: Positive: Normal Diagnostics - Vital Signs Vital Signs Temp Pulse Resp BP Pulse Ox 08/19/18 16:37 97.9 F 71 18 106/36 100 08/19/18 14:33 97.6 F 83 16 123/61 99 - Laboratory Lab Statement: Any lab studies that have been ordered have been reviewed, and results considered in the medical decision making process. - Radiology foot Radiology Interpretation Completed By: Radiologist Summary of Radiographic Findings: IMPRESSION: Normal radiograph of the right foot. Lower Extremity Course/Dx - Course Course Of Treatment: 58-year-old female presents with draining abscess from her right breast for the past week. She also admits to swelling to the top her foot. she states she is on her feet alot. States she has a history of arthritis and feels similar. She denies any history of gout. No swelling or tenderness to her MTP. She denies any fevers or chills. She also admits to occasional sinus congestion. no swelling or pain into her calfs. no injury. denies any history of MRSA. She has history of arthritis on methotrexate. on exam has mild erythema with open abscess on right breast that appears to be healing. has some edema to top of right foot not consistent with cellulitis or gout. xray normal. will place on keflex. told to ice and elevate foot. patient understand and agrees with plan. - Diagnoses Differential Diagnosis/HQI/PQRI: Positive: Cellulitis, Fracture (Closed), Gout Provider Diagnoses: Abscess of right breast, Swelling of right foot Discharge - Sign-Out/Discharge Documenting (check all that apply): Patient Departure Patient Received Moderate/Deep Sedation with Procedure: No - Discharge Plan Condition: Good Disposition: HOME Prescriptions: Cephalexin CAP* [Keflex CAP*] 500 mg PO BID #19 cap Patient Education Materials: Abscess (ED), R.I.C.E. Treatment (ED) Print Language: TURKISH Referrals: Nisha Dominguez MD [Primary Care Provider] - Additional Instructions: take augmentin twice a day for 10 days, first dose given in ED Elevate, ice foot apply heat to breast area Take Tylenol or ibuprofen for pain every 6 hours Follow up with primary within 5 days Return to ED if develop fever or any new or worsening symptoms - Billing Disposition and Condition Condition: GOOD Disposition: Home
[2018-08-19 18:42] VITALS: BP 105/55
== END 2018-08-19 18:42 | disposition home or self-care (01) ==
LOC: ED 14:30
DX: N61.1 Abscess of the breast and nipple (principal); M79.89 Other specified soft tissue disorders; I10 Essential (primary) hypertension; I20.9 Angina pectoris, unspecified; F17.210 Nicotine dependence, cigarettes, uncomplicated
CPT/HCPCS: 99282; A9270-GY

== ENCOUNTER 2020-11-07 14:29 | Inpatient (IN) ==
[2020-11-07 15:20] LABS: ABS Basophils 0.1 10^3/ul (0-0.2); ABS Lymphocytes 2.9 10^3/ul (1.0-4.8); ABS Monocytes 0.6 10^3/ul (0-0.8); ABS Neutrophils 4.6 10^3/ul (1.5-7.7); Eosinophil % 0.5 %; Hematocrit 46 % (35-47); Hemoglobin 15.6 g/dL (12.0-16.0); Mean Corpuscular HGB Conc 34 g/dL (31-36); Mean Corpuscular Hemoglobin 32 pg (27-31); Mean Corpuscular Volume 95 fL (80-97); Mean Platelet Volume 8.3 fL (7.4-10.4); Platelet Count 263 10^3/uL (150-450); Red Blood Count 4.81 10^6 /uL (3.70-4.87); Red Cell Distribution Width 14 % (10-15); White Blood Count 8.2 10^3/uL (3.5-10.8)
[2020-11-07 15:30] LABS: Magnesium 1.8 mg/dL (1.9-2.7)
[2020-11-07 15:38] LABS: Troponin I 0.01 ng/mL (<0.03)
[2020-11-07 16:22] LABS: TSH Ultra Thyroid Stim Horm 1.08 mcIU/mL (0.34-5.60)
[2020-11-07] MEDS ORDERED: Magnesium Sulfate 2 gm BAG 2 GM/50 ML BAG IVPB ONE (18:30)
[2020-11-07] MEDS ORDERED: Magnesium Sulfate 2 GM IV (Premix) IVPB ONE (21:00)
[2020-11-07 21:10] LABS: Calcium 9.5 mg/dL (8.6-10.3); EGFR African American 86.7 (>60); EGFR Non-African American 71.6 (>60)
[2020-11-07 21:15] LABS: Potassium 4.4 mmol/L (3.5-5.0)
[2020-11-08] MEDS ORDERED: Fluticasone NASAL SPRAY 50MCG 16 gm SPRAY BTL INTRANASAL PRN (01:29)
[2020-11-08] MEDS ORDERED: Albuterol HFA INHALER 8 gm MDI INH PRN (01:41)
[2020-11-08] MEDS: Enoxaparin 40 MG/0.4 ML SYR SUBCUT SCH ×2 (02:17→08:58)
[2020-11-08 05:17] LABS: Magnesium 1.9 mg/dL (1.9-2.7)
[2020-11-08 05:53] LABS: ABS Eosinophils 0.1 10^3/ul (0-0.6); ABS Lymphocytes 3.5 10^3/ul (1.0-4.8); ABS Monocytes 0.8 10^3/ul (0-0.8); ABS Neutrophils 4.1 10^3/ul (1.5-7.7); Eosinophil % 0.8 %; Hematocrit 43 % (35-47); Hemoglobin 14.7 g/dL (12.0-16.0); Lymphocyte % 41.7 %; Mean Corpuscular HGB Conc 34 g/dL (31-36); Mean Corpuscular Hemoglobin 32 pg (27-31); Mean Corpuscular Volume 94 fL (80-97); Mean Platelet Volume 8.6 fL (7.4-10.4); Platelet Count 231 10^3/uL (150-450); Red Blood Count 4.62 10^6 /uL (3.70-4.87); Red Cell Distribution Width 14 % (10-15); White Blood Count 8.4 10^3/uL (3.5-10.8)
[2020-11-08 06:06] LABS: Calcium 8.9 mg/dL (8.6-10.3); EGFR African American 100.9 (>60); EGFR Non-African American 83.4 (>60); Potassium 3.7 mmol/L (3.5-5.0)
[2020-11-08] MEDS: IPRATROPIUM BR (NF)0.06% NASAL 1 SPRAY BTL BOTH NARES SCH ×2 (08:59→21:18)
[2020-11-08] MEDS ORDERED: Fluticasone NASAL SPRAY 50MCG 16 gm SPRAY BTL INTRANASAL SCH (09:00)
[2020-11-08 10:57] LABS: Urine Appearance Cloudy; Urine Bilirubin Negative (Negative); Urine Blood 2+ (Negative); Urine Color Yellow; Urine Glucose Negative (Negative); Urine Ketones Negative (Negative); Urine Nitrite Negative (Negative); Urine Protein Negative (Negative); Urine Specific Gravity 1.017 (1.002-1.030); Urine Urobilinogen Negative (Negative)
[2020-11-08 10:58] LABS: Urine Bacteria 1+ (Absent); Urine Red Blood Cell 1+(3-5/hpf) (Absent); Urine Squamous Epithelial Cell Present (Absent); Urine White Blood Cell 3+(>20/hpf) (Absent)
[2020-11-08] MEDS ORDERED: Potassium Chlor 20 meq TAB.ER PO ONE (12:08)
[2020-11-08] MEDS ORDERED: Digoxin IV 0.5 MG/2 ML AMP (0.25 MG/ML) IV SLOW PU ONE (15:29)
[2020-11-09 04:59] LABS: ABS Eosinophils 0.1 10^3/ul (0-0.6); ABS Lymphocytes 4.1 10^3/ul (1.0-4.8); ABS Monocytes 0.7 10^3/ul (0-0.8); ABS Neutrophils 4.2 10^3/ul (1.5-7.7); Eosinophil % 1.4 %; Hematocrit 43 % (35-47); Hemoglobin 14.6 g/dL (12.0-16.0); Lymphocyte % 44.9 %; Mean Corpuscular HGB Conc 34 g/dL (31-36); Mean Corpuscular Hemoglobin 32 pg (27-31); Mean Corpuscular Volume 94 fL (80-97); Mean Platelet Volume 8.2 fL (7.4-10.4); Platelet Count 259 10^3/uL (150-450); Red Blood Count 4.56 10^6 /uL (3.70-4.87); Red Cell Distribution Width 14 % (10-15); White Blood Count 9.1 10^3/uL (3.5-10.8)
[2020-11-09 05:22] LABS: C Reactive Protein 22.85 mg/L (<8.01); Calcium 9.1 mg/dL (8.6-10.3); EGFR African American 106.1 (>60); EGFR Non-African American 87.7 (>60); Magnesium 1.9 mg/dL (1.9-2.7); Potassium 4.1 mmol/L (3.5-5.0)
[2020-11-09 06:20] LABS: Erythrocyte Sed Rate 32 mm/Hr (0-29)
[2020-11-09] MEDS ORDERED: Flumazenil 0.5 mg/5 ml 0.1 MG/ML 5 ml VIAL ONE (09:52)
[2020-11-09] MEDS ORDERED: Midazolam 5 mg/5 ml VIAL 1 mg/ml 5 ml VIAL (5 mg) ONE (09:52)
[2020-11-09] MEDS ORDERED: fentaNYL 100 mcg/2 ml 50 MCG/ML VIAL ONE (09:52)
[2020-11-09] MEDS ORDERED: Naloxone 0.4 mg VIAL 0.4 mg/ml 1 ml VIAL ONE (09:52)
[2020-11-09] MEDS: IPRATROPIUM BR (NF)0.06% NASAL 1 SPRAY BTL BOTH NARES SCH ×2 (10:33→20:44)
[2020-11-09] MEDS ORDERED: cefTRIAXone 1 gm/50 mL NS BAG 1 GM/50 ML BAG IVPB SCH (17:00)
[2020-11-10 05:06] LABS: ABS Eosinophils 0.1 10^3/ul (0-0.6); ABS Lymphocytes 3.9 10^3/ul (1.0-4.8); ABS Monocytes 0.6 10^3/ul (0-0.8); ABS Neutrophils 2.7 10^3/ul (1.5-7.7); Eosinophil % 1.3 %; Hematocrit 41 % (35-47); Hemoglobin 14.2 g/dL (12.0-16.0); Lymphocyte % 53.8 %; Mean Corpuscular HGB Conc 34 g/dL (31-36); Mean Corpuscular Hemoglobin 32 pg (27-31); Mean Corpuscular Volume 94 fL (80-97); Platelet Count 229 10^3/uL (150-450); Red Blood Count 4.38 10^6 /uL (3.70-4.87); Red Cell Distribution Width 14 % (10-15); White Blood Count 7.3 10^3/uL (3.5-10.8)
[2020-11-10 05:24] LABS: Calcium 8.8 mg/dL (8.6-10.3); EGFR African American 102.6 (>60); EGFR Non-African American 84.8 (>60); Magnesium 1.8 mg/dL (1.9-2.7); Potassium 4.2 mmol/L (3.5-5.0)
[2020-11-10] MEDS: IPRATROPIUM BR (NF)0.06% NASAL 1 SPRAY BTL BOTH NARES SCH (09:23)
[2020-11-10 11:25] VITALS: BP 99/57
[2020-11-10] MEDS ORDERED: cefTRIAXone 1 gm/50 mL NS BAG 1 GM/50 ML BAG IVPB ONE (13:00)
== END 2020-11-10 15:15 | disposition home or self-care (01) | DRG 201 ==
LOC: ED 14:29 → MEDTELE 11-08 01:10
PROVIDERS: ADMIT Internal Medicine; ATTEND Internal Medicine